=== PATIENT | male | born 1955 | race African-American/Black ===

== ENCOUNTER 2016-09-19 00:41 | Emergency (ER) | payer OTHER ==
[~2016-09-19] VITALS: Ht 182.9 cm; Wt 134.6 kg
[2016-09-19 00:46] VITALS: TEMP 37; Ht 182.9 cm; Wt 134.6 kg
--- NOTE | 2016-09-19 01:20 | EMERGENCY ROOM VISIT NOTE ---
History Report prepared by Bernice: Christian Dodd Under the Supervision of: Dr. Harriet rAnold D.O. First contact with patient: 00:51 Chief Complaint: ILLNESS Stated Complaint: FEVER,HYPERTENSION,PAIN History of Present Illness The patient is a 61 year old male who presents to the Emergency Room with complaints of constant left flank pain starting today and high blood pressure. He currently rates his discomfort as a 10/10 in severity. The patient states that he has been having kidney problems, and he has protein in his urine. The patient states that he has lost weight, however for the past couple of days he has been bloated, and he has gained weight. He states that he has leg discomfort as well. The patient states that he has chills, though he denies any urinary burning, nausea, vomiting, or fever. He states that he has a history of diabetes, and he take Humalog daily in the morning and night, and his sugar was 80 this morning. The patient states that he has been having normal bowel movements. Source of History: patient Onset: earlier today Position: other (kidney) Symptom Intensity: 10/10 Timing: constant Associated Symptoms: + chills, No nausea, No vomiting, No urinary symptoms Review of Systems See HPI for pertinent positives & negatives. A total of 10 systems reviewed and were otherwise negative. Past Medical & Surgical Medical Problems: (1) Diabetes (2) High blood pressure Family History Patient reports no known family medical history. Social History Smoking Status: Never Smoker Housing Status: other (senior living) Occupation Status: unemployed Current/Historical Medications Scheduled Amlodipine (Norvasc), 10 MG PO DAILY Emollient (Aloe Aftersun Lotion), 1 APPLN TOP BID17 Furosemide (Lasix), 80 MG PO DAILY Insulin Glargine (Lantus), 30 UNITS SC QPM Insulin Human Regular (Humulin R), SQ BID Insulin Isophan/Regular (Humulin 70/30), 10 UNITS SC QAM Lisinopril (Prinivil), 40 MG PO BID Metolazone (Zaroxolyn), 1.25 MG PO DAILY Metoprolol Tartrate (Lopressor) (Lopressor), 50 MG PO BID Ranitidine Hcl (Zantac), 300 MG PO BID Tolnaftate (Tolnaftate), 1 APPLN TOP BID Scheduled PRN Dextrose (Diabetic Use) (Glucose), 1 TAB PO DAILY PRN for LOW BLOOD SUGAR Allergies Coded Allergies: No Known Allergies (Unverified , 09/19/16) Physical Exam Vital Signs Date Time Temp Pulse Resp B/P (MAP) Pulse Ox O2 Delivery O2 Flow Rate FiO2 09/19/16 03:53 72 20 161/91 98 Room Air 09/19/16 03:10 75 20 190/105 97 Room Air 09/19/16 02:48 80 09/19/16 02:05 81 18 172/111 98 Room Air 09/19/16 02:05 98 Room Air 09/19/16 00:46 37.0 92 16 161/114 98 Room Air Physical Exam HEENT: Head - normocephalic and atraumatic Pupils are equal, round, and reactive to light. Extraocular eye muscles are intact, and sclera are anicteric. Nose - moist nasal mucosa without discharge. Mouth - moist buccal mucosa. Oropharynx is nonerythematous and there is no tonsillar exudate or edema noted. Neck: Supple; no JVD, nuchal rigidity, cervical lymphadenopathy, or auscultated bruits. Heart: Regular rate and rhythm. There is a normal S1 and S2 with no murmurs, clicks, or gallops appreciated. Lungs: Clear to auscultation bilaterally with no wheezes, rales, or rhonchi. Abdomen: Soft, completely nontender, nondistended, with good bowel sounds. There are no palpable pulsatile masses or hepatosplenomegaly. There is no guarding, rigidity, or rebound noted. Back: Left CVA tenderness. Extremities: 2+ edema in the legs. No evidence of cyanosis, clubbing. There are easily palpable peripheral pulses. Skin: warm and dry with good turgor and no rashes. Medical Decision & Procedures ER Provider Diagnostic Interpretation: X-ray results as stated below per interpretation by me: Chest: Borderline cardiomegaly. No obvious pulmonary infiltrate or consolidation. Pulmonary vascular congestion. Radiology results as stated below per my review and the radiologist's interpretation: CT ABDOMEN & PELVIS: Bilateral perinephric stranding. Correlate clinically/ with urinalysis to exclude infection. No hydronephrosis or obstructive uropathy. No abscess. No bowel obstruction. No appendicitis or other inflammatory changes of bowel. Scattered distal colonic ventricle. Pancreas and gallbladder are grossly unremarkable. No free air or free fluid. Radiologist: Judah Hernandez Laboratory Results 09/19/16 02:33 Red Blood Count 5.21, Mean Corpuscular Volume 78.5, Mean Corpuscular Hemoglobin 26.3, Mean Corpuscular Hemoglobin Concent 33.5, Mean Platelet Volume 11.5, Neutrophils (%) (Auto) 45.0, Lymphocytes (%) (Auto) 36.6, Monocytes (%) (Auto) 14.7, Eosinophils (%) (Auto) 3.2, Basophils (%) (Auto) 0.3, Neutrophils # (Auto ) 4.85, Lymphocytes # (Auto) 3.95, Monocytes # (Auto) 1.59, Eosinophils # (Auto ) 0.35, Basophils # (Auto) 0.03 09/19/16 02:33 Test 09/19/16 02:15 09/19/16 02:33 09/19/16 02:39 Urine Color YELLOW Urine Appearance CLEAR (CLEAR) Urine pH 6.5 (4.5-7.5) Urine Specific Gruver 1.016 (1.000-1.030) Urine Protein 4+ (NEG) Urine Glucose (UA) NEG (NEG) Urine Ketones NEG (NEG) Urine Occult Blood 2+ (NEG) Urine Nitrite NEG (NEG) Urine Bilirubin NEG (NEG) Urine Urobilinogen NEG (NEG) Urine Leukocyte Esterase NEG (NEG) Urine WBC (Auto) 1-5 /hpf (0-5) Urine RBC (Auto) 10-30 /hpf (0-4) Urine Hyaline Casts (Auto) 1-5 /lpf (0-5) Urine Epithelial Cells (Auto) >30 /lpf (0-5) Urine Bacteria (Auto) NEG (NEG) White Blood Count 10.79 K/uL (4.8-10.8) Red Blood Count 5.21 M/uL (4.7-6.1) Hemoglobin 13.7 g/dL (14.0-18.0) Hematocrit 40.9 % (42-52) Mean Corpuscular Volume 78.5 fL (80-100) Mean Corpuscular Hemoglobin 26.3 pg (25-34) Mean Corpuscular Hemoglobin Concent 33.5 g/dl (32-36) Platelet Count 184 K/uL (130-400) Mean Platelet Volume 11.5 fL (7.4-10.4) Neutrophils (%) (Auto) 45.0 % Lymphocytes (%) (Auto) 36.6 % Monocytes (%) (Auto) 14.7 % Eosinophils (%) (Auto) 3.2 % Basophils (%) (Auto) 0.3 % Neutrophils # (Auto) 4.85 K/uL (1.4-6.5) Lymphocytes # (Auto) 3.95 K/uL (1.2-3.4) Monocytes # (Auto) 1.59 K/uL (0.11-0.59) Eosinophils # (Auto) 0.35 K/uL (0-0.5) Basophils # (Auto) 0.03 K/uL (0-0.2) RDW Standard Deviation 38.1 fL (36.4-46.3) RDW Coefficient of Variation 13.4 % (11.5-14.5) Immature Granulocyte % (Auto) 0.2 % Immature Granulocyte # (Auto) 0.02 K/uL (0.00-0.02) Prothrombin Time 10.4 SECONDS (9.0-12.0) Prothromb Time International Ratio 1.0 (0.9-1.1) Activated Partial Thromboplast Time 26.2 SECONDS (21.0-31.0) Partial Thromboplastin Ratio 1.0 Anion Gap 8.0 mmol/L (3-11) Est Creatinine Clear Calc Drug Dose 33.8 ml/min Estimated GFR () 22.3 Estimated GFR (Non- 19.2 BUN/Creatinine Ratio 9.4 (10-20) Calcium Level 7.9 mg/dl (8.5-10.1) Total Bilirubin 0.4 mg/dl (0.2-1) Aspartate Amino Transf (AST/SGOT) 35 U/L (15-37) Alanine Aminotransferase (ALT/SGPT) 31 U/L (12-78) Alkaline Phosphatase 127 U/L (45-117) Total Protein 6.7 gm/dl (6.4-8.2) Albumin 2.3 gm/dl (3.4-5.0) Globulin 4.4 gm/dl (2.5-4.0) Albumin/Globulin Ratio 0.5 (0.9-2) Chemistry Specimen Hemolysis Bedside Lactic Acid Venous 0.40 mmol/L (0.90-1.70) Laboratory results per my review. Medications Administered Medications (Trade) Dose Ordered Sig/Errol Route Start Time Stop Time Status Last Admin Dose Admin Hydromorphone HCl (Dilaudid Inj) 3 mg NOW STAT IM 09/19/16 02:36 09/19/16 02:38 DC 09/19/16 02:50 3 MG Hydralazine HCl (Apresoline Tab) 25 mg NOW STAT PO 09/19/16 03:08 09/19/16 03:09 DC 09/19/16 03:27 25 MG Procedure Medications: Dilaudid Inj IM, Apresoline Tab PO ECG Indication: other (kidney pain and hypertension) Rate (beats per minute): 81 Rhythm: normal sinus Findings: no acute ischemic change, no ectopy, other (No peaked T waves) ED Course 0051: Past medical records reviewed. The patient was evaluated in room B6. A complete history and physical exam was performed. Multiple attempts were made at drawing laboratory studies, blood cultures, and initiating an IV. These were all unsuccessful. 0212: I reviewed the patient's records from [facility]. On the patient's creatinine was 3.0, potassium of 5, and a glucose of 126. 0235: I performed a groin stick for blood. The patient was still complaining of left flank pain. 0236: Dilaudid Inj 3mg IM 0306: I reevaluated the patient, and informed him that he is going to CT scan, and I recycled his blood pressure, and it was 191/105. 0308: Apresoline Tab 25mg PO 0416: I discussed everything with the nurse on duty at [facility]. She will convey the information with the doctor that comes in at 8am 0424: Upon reevaluation, the patient was feeling better. I discussed findings and results with him. He verbalized agreement of the treatment plan. He was discharged back to [facility]. Medical Decision The patient is a 61 year old male who presents to the ED with left flank pain. Differential diagnosis includes sepsis, acute renal failure, pyelonephritis, and ureteral colic. I attest that I have personally reviewed the patient's current medication list. Patient was found to have an elevated blood pressure and was referred to their primary doctor for recheck and further treatment. Lab Results: Coags normal,, no leukocytosis, stable H&H, lactic acid .4, BUN 31 , creatinine 3.3, glucose 71, LFTs normal, Urinalysis showed 2+ blood with 10- 30 red blood cells, 4+ proteins. The patient has had persistent hypertension and lower extremity edema over the past couple of days. He has had an increasing creatinine. He then developed some left-sided flank pain and chills. Urinalysis revealed no evidence of urinary tract infection. However, there was some blood noted in the urine. CT scan was ordered to rule out the possibility of a ureteral stone. There is no obvious evidence of kidney stone, however there was some perinephric stranding bilaterally. The patient's blood pressure responded nicely to oral hydralazine. I believe the patient will need close monitoring at the senior living with regards to his blood pressure and creatinine. There is no evidence of urinary tract infection on urinalysis. Impression Primary Impression: Left flank pain Additional Impressions: Acute renal insufficiency Uncontrolled hypertension Scribe Attestation The scribe's documentation has been prepared under my direction and personally reviewed by me in its entirety. I confirm that the note above accurately reflects all work, treatment, procedures, and medical decision making performed by me. Departure Information Dispostion Home / Self-Care Referrals Esperanza PORTER (PCP) Forms HOME CARE DOCUMENTATION FORM, IMPORTANT VISIT INFORMATION, WORK / SCHOOL INSTRUCTIONS Patient Instructions My [facility] [employer] Additional Instructions Watch the BP closely. Possible medication adjustment. His BP responded nicely to oral hydralazine. Low sodium diet. Elevate the legs. Stranding around both kidneys with hematuria and proteinuria on UA. Problem Qualifiers
[2016-09-19] MEDS ORDERED: AMLO-114 PO (01:30)
[2016-09-19] MEDS ORDERED: FRS/40 PO (01:37)
[2016-09-19] MEDS ORDERED: LISI40TA PO (01:37)
[2016-09-19] MEDS ORDERED: EMOLLOT TOP (01:41)
[2016-09-19] MEDS ORDERED: METO2.5T PO (01:42)
[2016-09-19] MEDS ORDERED: RANI300T2 PO (01:42)
[2016-09-19] MEDS ORDERED: METO50TA16 PO (01:44)
[2016-09-19] MEDS ORDERED: TOLN1CRE26 TOP (01:44)
[2016-09-19] MEDS ORDERED: DEXT4CHW60 PO (01:45)
[2016-09-19] MEDS ORDERED: INSDGI SC (01:46)
[2016-09-19] MEDS ORDERED: INSU1INJ SC (01:46)
[2016-09-19] MEDS ORDERED: INSHRIE SQ (01:58)
[2016-09-19 02:05] VITALS: O2SAT 98
[2016-09-19 02:31] LABS: URINE APPEARANCE CLEAR (CLEAR); URINE BILIRUBIN NEG (NEG); URINE COLOR YELLOW; URINE EPITHELIAL CELL AUTO >30 /lpf (0-5); URINE NITRITE NEG (NEG); URINE PH 6.5 (4.5-7.5); URINE SPECIFIC GRAVITY 1.016 (1.000-1.030); UROBILINOGEN NEG (NEG); ZZUR CULT IF INDIC CLEAN CATCH NO
[2016-09-19] MEDS ORDERED: HYDROmorphone HCL 4 MG/ML SYR IM STA (02:36)
[2016-09-19 02:37] LABS: MANUAL MICROSCOPIC REQUIRED? NO; REVIEW REQ? NO
[2016-09-19 02:51] LABS: BASO % 0.3 %; BASO ABS # 0.03 K/uL (0-0.2); COMPLETE YES; EOS % 3.2 %; HEMATOCRIT 40.9 % (42-52); IG% 0.2 %; LYMPH % 36.6 %; LYMPH ABS # 3.95 K/uL (1.2-3.4); MEAN CELL VOLUME 78.5 fL (80-100); MEAN CORPUSCULAR HEMOGLOBIN 26.3 pg (25-34); MEAN CORPUSCULAR HGB CONC 33.5 g/dl (32-36); MEAN PLATELET VOLUME 11.5 fL (7.4-10.4); MONO % 14.7 %; PLATELET COUNT 184 K/uL (130-400); RED BLOOD COUNT 5.21 M/uL (4.7-6.1); WHITE BLOOD COUNT 10.79 K/uL (4.8-10.8)
[2016-09-19 03:04] LABS: PROTHROMBIN TIME (PATIENT) 10.4 SECONDS (9.0-12.0)
[2016-09-19 03:17] LABS: ALB/GLOB RATIO 0.5 (0.9-2); BUN/CREATININE RATIO 9.4 (10-20); CALCIUM 7.9 mg/dl (8.5-10.1); CREATININE 3.3 mg/dl (0.60-1.40); POTASSIUM 3.6 mmol/L (3.5-5.1)
[2016-09-19 03:53] VITALS: BP 161/91; PULSE 72; O2SAT 98
--- NOTE | 2016-09-19 06:37 | DIAGNOSTIC IMAGING REPORT ---
ABDOMEN AND PELVIS CT WITHOUT CONTRAST CT DOSE: 2174.17 mGy.cm HISTORY: Flank pain eval for left -sided stone TECHNIQUE: Multiaxial CT images of the abdomen and pelvis were performed without the use of intravenous and oral contrast according to the standard department stone protocol. COMPARISON STUDY: None. FINDINGS: Lung bases are clear. Liver spleen and pancreas are unremarkable. Perinephric fat stranding with a suggestion of slight edematous change of the kidneys bilaterally. No evidence for an obstructing calculus. Bowel pattern overall is nonobstructive. The appendix is normal. Several scattered colonic diverticuli. IMPRESSION: Findings suspect for bilateral renal pyelonephritis Electronically signed by: Hiram York M.D. 09/19/2016 6:36 AM Dictated Date/Time: 09/19/2016 6:34 AM
--- NOTE | 2016-09-19 07:27 | DIAGNOSTIC IMAGING REPORT ---
SINGLE VIEW CHEST CLINICAL HISTORY: Sepsis. FINDINGS: An AP, portable, upright chest radiograph is obtained. No prior studies are available for comparison at the time of dictation. The examination is degraded by portable technique and apical lordotic positioning. The cardiomediastinal silhouette is unremarkable. The lungs and pleural spaces are clear. No pneumothorax is seen. The bony thorax is grossly intact. IMPRESSION: No active disease in the chest. Electronically signed by: Zach Watkins M.D. 09/19/2016 7:26 AM Dictated Date/Time: 09/19/2016 7:25 AM
[2016-10-30] MEDS ORDERED: HYDR-4716 PO (13:50)
== END 2016-09-19 04:28 | disposition home or self-care (01) ==
LOC: C.EDB 00:43
DX: R10.9 Unspecified abdominal pain (principal); N28.9 Disorder of kidney and ureter, unspecified; I10 Essential (primary) hypertension; E11.9 Type 2 diabetes mellitus without complications; Z79.4 Long term (current) use of insulin

== ENCOUNTER → 2016-09-22 | Outpatient (CLI) | payer OTHER ==
[~2016-09-22] MED LIST: AMLO-114 PO; APR10 PO; ATOR-22 PO; CARV25TA2 PO; DEXT4CHW60 PO; EMOLLOT TOP; FRS/40 PO; FURO-85 PO; HYDR-4716 PO; INSDGI SC; INSHRIE SQ; INSU1INJ SC; LISI40TA PO; METO2.5T PO; METO50TA16 PO; RANI300T2 PO; TOLN1CRE26 TOP; TORS100T13 PO; TORS20TA2 PO
[2016-09-22 08:45] LABS: BLOOD UREA NITROGEN 33 mg/dl (7-18); BUN/CREATININE RATIO 10.7 (10-20); CALCIUM 8.1 mg/dl (8.5-10.1); CARBON DIOXIDE 23 mmol/L (21-32); CHLORIDE 116 mmol/L (98-107); GLUCOSE 57 mg/dl (70-99); POTASSIUM 4.4 mmol/L (3.5-5.1); SODIUM 147 mmol/L (136-145)
== END | disposition home or self-care (01) ==
LOC: C.LABSPEC 08:08
PROVIDERS: ATTEND Physician Assistant Medical
DX: N17.9 Acute kidney failure, unspecified (principal)

== ENCOUNTER 2016-10-16 15:25 | Inpatient (IN) | payer OTHER ==
[~2016-10-16] VITALS: Ht 182.9 cm; Wt 138.5 kg
[~2016-10-16 15:25] MED LIST changes: -APR10 PO; -ATOR-22 PO; -CARV25TA2 PO; -FURO-85 PO; -HYDR-4716 PO; -TORS100T13 PO; -TORS20TA2 PO
[2016-10-16] MEDS ORDERED: FUROSEMIDE 40 MG/4 ML VIAL IV STA (16:08)
[2016-10-16] MEDS ORDERED: NITROGLYCERIN OINT 2% 1GM PACKET EXT STA (16:11)
--- NOTE | 2016-10-16 16:13 | EMERGENCY ROOM VISIT NOTE ---
History Report prepared by Bernice: Edilma Blackwood Under the Supervision of: Dr. Mervin Mejia M.D. First contact with patient: 16:01 Chief Complaint: EDEMA TO EXTREMITY Stated Complaint: HYPERTENSION/EDEMA, [facility] History of Present Illness The patient is a 61 year old male who presents to the Emergency Room with complaints of persistent weakness over the past several days. The patient reports that over the past three days he has gained 10 pounds. He states that he has a history of kidney disease and diabetes. The patient states that he has been becoming short of breath with exertion. He states that he has been hypertensive over the past several days. The patient reports right knee pain, and bilateral lower extremity swelling. He states that he has also been fatigued. The patient states that his Lasix was recently stopped due to his kidney disease, but states that he was instructed to restart it today. The patient denies any chest pain. Source of History: patient Onset: past several days Position: other (global) Quality: other (weakness) Timing: other (persistent) Associated Symptoms: + SOB (with exertion), + fatigue, No chest pain Note: Associated Symptoms: bilateral lower extremity swelling, hypertension, right knee pain, 10 pound weight gain Review of Systems See HPI for pertinent positives & negatives. A total of 10 systems reviewed and were otherwise negative. Past Medical & Surgical Medical Problems: (1) Diabetes (2) High blood pressure Family History Patient reports no known family medical history. Social History Smoking Status: Former Smoker Housing Status: other Occupation Status: unemployed Current/Historical Medications Scheduled Amlodipine (Norvasc), 10 MG PO DAILY Atorvastatin (Lipitor), 20 MG PO DAILY Insulin Glargine (Lantus), 30 UNITS SC QPM Insulin Human Regular (Humulin R), SQ BID Insulin Isophan/Regular (Humulin 70/30), 10 UNITS SC QAM Lisinopril (Prinivil), 20 MG PO DAILY Metoprolol Tartrate (Lopressor) (Lopressor), 100 MG PO BID Scheduled PRN Dextrose (Diabetic Use) (Glucose), 1 TAB PO DAILY PRN for LOW BLOOD SUGAR Ranitidine Hcl (Zantac), 150 MG PO DAILY PRN for heartburn Allergies Coded Allergies: No Known Allergies (Unverified , 10/16/16) Physical Exam Vital Signs Date Time Temp Pulse Resp B/P (MAP) Pulse Ox O2 Delivery O2 Flow Rate FiO2 10/16/16 19:00 76 24 99 10/16/16 18:51 236/112 10/16/16 18:00 73 24 207/124 98 Room Air 10/16/16 17:10 75 20 209/112 98 Room Air 10/16/16 16:16 97 Room Air 10/16/16 16:16 97 Room Air 10/16/16 15:48 36.9 83 22 220/115 99 Room Air 10/16/16 15:43 76 Physical Exam GENERAL: Patient is a healthy-appearing well-nourished male HEAD: Normocephalic atraumatic EYES: Ocular movements intact pupils equal and react to light OROPHARYNX mucous membranes are moist no exudates present no erythema or edema present NECK: Supple no nuchal rigidity CHEST: Good equal expansion LUNGS: Clear and equal to auscultation CARDIAC: Normal S1 and S2 ABDOMEN: Soft nontender no guarding BACK: No CVA tenderness EXTREMITIES: 2+ pitting edema at the thighs. No pain upon palpation normal muscle strength in all groups no clubbing cyanosis. NEURO: Patient is following commands and answering questions appropriately. Alert and oriented x3 Cranial Nerves 2-12 grossly intact Medical Decision & Procedures ER Provider Diagnostic Interpretation: Radiology results as stated below per my review and radiologist interpretation: RIGHT LOWER EXTREMITY VENOUS DOPPLER CLINICAL HISTORY: Right lower extremity swelling. COMPARISON STUDY: No previous studies for comparison. TECHNIQUE: Sonography of the deep venous system of the right lower extremity was performed. Compression and augmentation were evaluated. FINDINGS: The common femoral, superficial femoral and popliteal veins were compressible. Augmentation was normal. Flow was shown within the deep calf vessels. Note was made of right lower extremity subcutaneous edema. IMPRESSION: No evidence of deep venous thrombus within the right lower extremity. Electronically signed by: Lc Ace M.D. 10/16/2016 6:37 PM Dictated Date/Time: 10/16/2016 6:37 PM RIGHT KNEE 1 OR 2 VIEWS ROUTINE CLINICAL HISTORY: Pt c/o Rt knee pain Right pain COMPARISON: None. DISCUSSION: Mild/moderate degenerative change of all major joint compartments. No evidence for acute bony pathology. Metallic fragment within the soft tissues lateral to the knee. Per history this appears to been pre-existing There is no evidence for soft tissue swelling. IMPRESSION: Mild degenerative change all major joint compartments. No acute process. The above report was generated using voice recognition software. It may contain grammatical, syntax or spelling errors. Electronically signed by: Hiram York M.D. 10/16/2016 4:40 PM Dictated Date/Time: 10/16/2016 4:39 PM CHEST ONE VIEW PORTABLE CLINICAL HISTORY: Pt c/o SOB dyspnea COMPARISON STUDY: 09/19/2016 FINDINGS: Mild stable cardia megaly. Diaphragms smooth. Lungs are clear. IMPRESSION: Mild stable cardiomegaly. Otherwise negative study. The above report was generated using voice recognition software. It may contain grammatical, syntax or spelling errors. Electronically signed by: Hiram York M.D. 10/16/2016 4:39 PM Dictated Date/Time: 10/16/2016 4:38 PM Laboratory Results 10/16/16 17:40 Red Blood Count 4.92, Mean Corpuscular Volume 78.9, Mean Corpuscular Hemoglobin 26.0, Mean Corpuscular Hemoglobin Concent 33.0, Mean Platelet Volume 11.3, Neutrophils (%) (Auto) 43.1, Lymphocytes (%) (Auto) 41.2, Monocytes (%) (Auto) 11.5, Eosinophils (%) (Auto) 3.7, Basophils (%) (Auto) 0.3, Neutrophils # (Auto ) 4.23, Lymphocytes # (Auto) 4.04, Monocytes # (Auto) 1.13, Eosinophils # (Auto ) 0.36, Basophils # (Auto) 0.03 10/16/16 17:40 Test 10/16/16 16:35 10/16/16 17:40 10/16/16 17:47 10/16/16 17:50 Urine Color YELLOW Urine Appearance CLEAR (CLEAR) Urine pH 6.5 (4.5-7.5) Urine Specific Sasser 1.018 (1.000-1.030) Urine Protein 3+ (NEG) Urine Glucose (UA) TRACE (NEG) Urine Ketones NEG (NEG) Urine Occult Blood 2+ (NEG) Urine Nitrite NEG (NEG) Urine Bilirubin NEG (NEG) Urine Urobilinogen NEG (NEG) Urine Leukocyte Esterase NEG (NEG) Urine WBC (Auto) 1-5 /hpf (0-5) Urine RBC (Auto) 10-30 /hpf (0-4) Urine Hyaline Casts (Auto) 0 /lpf (0-5) Urine Epithelial Cells (Auto) >30 /lpf (0-5) Urine Bacteria (Auto) NEG (NEG) Urine Renal Epithelial Cells /lpf (0-5) White Blood Count 9.81 K/uL (4.8-10.8) Red Blood Count 4.92 M/uL (4.7-6.1) Hemoglobin 12.8 g/dL (14.0-18.0) Hematocrit 38.8 % (42-52) Mean Corpuscular Volume 78.9 fL (80-100) Mean Corpuscular Hemoglobin 26.0 pg (25-34) Mean Corpuscular Hemoglobin Concent 33.0 g/dl (32-36) Platelet Count 161 K/uL (130-400) Mean Platelet Volume 11.3 fL (7.4-10.4) Neutrophils (%) (Auto) 43.1 % Lymphocytes (%) (Auto) 41.2 % Monocytes (%) (Auto) 11.5 % Eosinophils (%) (Auto) 3.7 % Basophils (%) (Auto) 0.3 % Neutrophils # (Auto) 4.23 K/uL (1.4-6.5) Lymphocytes # (Auto) 4.04 K/uL (1.2-3.4) Monocytes # (Auto) 1.13 K/uL (0.11-0.59) Eosinophils # (Auto) 0.36 K/uL (0-0.5) Basophils # (Auto) 0.03 K/uL (0-0.2) RDW Standard Deviation 40.5 fL (36.4-46.3) RDW Coefficient of Variation 14.2 % (11.5-14.5) Immature Granulocyte % (Auto) 0.2 % Immature Granulocyte # (Auto) 0.02 K/uL (0.00-0.02) Prothrombin Time 10.6 SECONDS (9.0-12.0) Prothromb Time International Ratio 1.0 (0.9-1.1) Est Creatinine Clear Calc Drug Dose 31.1 ml/min Estimated GFR () 19.4 Estimated GFR (Non- 16.7 BUN/Creatinine Ratio 10.4 (10-20) Calcium Level 8.1 mg/dl (8.5-10.1) Total Bilirubin 0.3 mg/dl (0.2-1) Aspartate Amino Transf (AST/SGOT) 41 U/L (15-37) Alanine Aminotransferase (ALT/SGPT) 36 U/L (12-78) Alkaline Phosphatase 129 U/L (45-117) Total Creatine Kinase 164 U/L (39-308) Creatine Kinase MB 2.2 ng/ml (0.5-3.6) Creatine Kinase MB Ratio 1.3 (0-3.0) Troponin I 0.026 ng/ml (0-0.045) Pro-B-Type Natriuretic Peptide 3234 pg/ml (0-900) Total Protein 6.4 gm/dl (6.4-8.2) Albumin 2.2 gm/dl (3.4-5.0) Globulin 4.2 gm/dl (2.5-4.0) Albumin/Globulin Ratio 0.5 (0.9-2) Bedside D-Dimer > 450 ng/mlFEU (0-450) Bedside Hemoglobin 13.3 g/dl (14.0-18.0) Bedside Hematocrit 39 % (42-52) Bedside Sodium 143 mEq/L (135-144) Bedside Potassium 3.8 mEq/L (3.3-5.0) Bedside Chloride 110 mEq/L (101-112) Bedside Total CO2 22 mEq/l (24-31) Anion Gap 16.0 mmol/L (16-25) Bedside Blood Urea Nitrogen 35 mg/dl (7-18) Bedside Creatinine 3.9 mg/dl (0.6-1.3) Bedside Glucose (other) 89 mg/dl (70-99) Bedside Ionized Calcium (Sergey) 1.11 mmol/l (1.12-1.32) Labs reviewed by ED physician. Medications Administered Medications (Trade) Dose Ordered Sig/Errol Route Start Time Stop Time Status Last Admin Dose Admin Furosemide (Lasix Inj) 40 mg NOW STAT IV 10/16/16 16:08 10/16/16 16:11 DC 10/16/16 17:59 40 MG Nitroglycerin (Nitroglycerin 2% Oint) 1 inch NOW STAT EXT 10/16/16 16:11 10/16/16 16:12 DC 10/16/16 16:36 1 INCH Sodium Chloride 500 ml @ 999 mls/hr Q31M STAT IV 7/17/17 18:21 10/16/16 18:51 DC 10/16/16 18:24 999 MLS/HR Hydralazine HCl (HydrALAZINE INJ) 10 mg NOW STAT IV. 10/16/16 20:10 10/16/16 20:22 DC 10/16/16 20:26 10 MG Procedure Central Venous Catheter Indication: access Catheter type: arrow triple lumen Location: left femoral Verbal consent was obtained after the risks and benefits were explained, including but not limited to pneumothorax, hemothorax, vessel injury, bleeding, scarring, infection, pain, and bone/joint/nerve damage. At this time, the risks of the procedure are less than the risks of NOT performing the procedure. A time out was taken and the correct patient and site identified. The patient was placed in the supine position and the skin was prepped in the standard fashion with chlorhexidine and full sterile drapes applied. The proper landmarks were identified with ultrasound, anesthetized with 1% lidocaine without epinephrine, and the needle was inserted through the skin in the standard fashion. The needle was carefully advanced into blood vessel lumen under ultrasound guidance. The guidewire was placed uneventfully. The vessel is dilated and the catheter was placed. It was sutured into position. There was good blood return from all ports. The patient tolerated the procedure well and there were no complications. Post procedure x-ray was normal. ECG Indication: SOB/dyspnea Rate (beats per minute): 76 Rhythm: normal sinus Findings: no acute ischemic change, no ectopy ED Course 1605: Past medical records reviewed. The patient was evaluated in room C3. A complete history and physical examination was performed. 1608: Ordered Lasix Inj 40 mg IV. 1611: Ordered Nitroglycerin 1 inch EXT. 1711: I placed a central line at this time in the patient. See procedure note for further detail. 1821: Ordered Sodium Chloride 500 ml @ 999 mls/hr IV. 1845: I reevaluated the patient and he is resting comfortably. I discussed the exam findings with him and the guards and I discussed the treatment plan. They verbalized complete understanding and agreement. The patient will be evaluated for further treatment. 1915: I discussed the patients case with Genie Raza. She is going to evaluate the patient for further treatment. Medical Decision Differential diagnosis: Etiologies such as infections, reactive airway disease, pneumonia, pneumothorax , COPD, CHF, cardiac ischemia, pulmonary embolism, musculoskeletal, gastrointestinal, as well as others were entertained. Medication Reconciliation: I attest that I have personally reviewed the patient' s current medication list Blood Pressure Screening: Patient was found to have an elevated blood pressure and was referred to their primary care doctor for recheck and further treatment This is a 61-year-old male who presents emergency department complaining of shortness of breath along with right leg pain and swelling. The patient has a history of renal failure and his Lasix has been stopped due to his kidney status. His creatinine today is bumped up to 3.9. He does have a positive d- dimer so he was not sent for a CAT scan of the chest. Chest x-ray does not show any evidence of congestive heart failure. We were unable to obtain the laboratory work or an IV sites therefore a central line was placed as above for laboratory work. I am deeply concerned about this patient's kidney function therefore he was discussed with the hospitalist service who agreed to admit him. Patient and guardians were in agreement with the treatment plan. Consults Time Called: 1911 Consulting Physician: Genie Raza Returned Call: 1915 I discussed the patients case with Genie Raza. She is going to evaluate the patient for further treatment. Impression Primary Impression: Acute renal failure Scribe Attestation The scribe's documentation has been prepared under my direction and personally reviewed by me in its entirety. I confirm that the note above accurately reflects all work, treatment, procedures, and medical decision making performed by me. Departure Information Dispostion Being Evaluated By Hospitalist Referrals Esperanza PORTER (PCP) Problem Qualifiers Primary Impression: Acute renal failure Acute renal failure type: unspecified Qualified Codes: N17.9 - Acute kidney failure, unspecified
[2016-10-16] MEDS ORDERED: NITROGLYCERIN OINT 2% 1GM PACKET ONE (16:34)
--- NOTE | 2016-10-16 16:40 | DIAGNOSTIC IMAGING REPORT ---
CHEST ONE VIEW PORTABLE CLINICAL HISTORY: Pt c/o SOB dyspnea COMPARISON STUDY: 09/19/2016 FINDINGS: Mild stable cardia megaly. Diaphragms smooth. Lungs are clear. IMPRESSION: Mild stable cardiomegaly. Otherwise negative study. The above report was generated using voice recognition software. It may contain grammatical, syntax or spelling errors. Electronically signed by: Hiram York M.D. 10/16/2016 4:39 PM Dictated Date/Time: 10/16/2016 4:38 PM
--- NOTE | 2016-10-16 16:41 | DIAGNOSTIC IMAGING REPORT ---
RIGHT KNEE 1 OR 2 VIEWS ROUTINE CLINICAL HISTORY: Pt c/o Rt knee pain Right pain COMPARISON: None. DISCUSSION: Mild/moderate degenerative change of all major joint compartments. No evidence for acute bony pathology. Metallic fragment within the soft tissues lateral to the knee. Per history this appears to been pre-existing There is no evidence for soft tissue swelling. IMPRESSION: Mild degenerative change all major joint compartments. No acute process. The above report was generated using voice recognition software. It may contain grammatical, syntax or spelling errors. Electronically signed by: Hiram York M.D. 10/16/2016 4:40 PM Dictated Date/Time: 10/16/2016 4:39 PM
[2016-10-16] MEDS ORDERED: ATOR-22 PO (17:06)
[2016-10-16 17:15] LABS: URINE APPEARANCE CLEAR (CLEAR); URINE BILIRUBIN NEG (NEG); URINE COLOR YELLOW; URINE EPITHELIAL CELL AUTO >30 /lpf (0-5); URINE NITRITE NEG (NEG); URINE PH 6.5 (4.5-7.5); URINE SPECIFIC GRAVITY 1.018 (1.000-1.030); UROBILINOGEN NEG (NEG)
[2016-10-16 17:29] LABS: MANUAL MICROSCOPIC REQUIRED? NO; REVIEW REQ? YES
[2016-10-16 18:01] LABS: BASO % 0.3 %; BASO ABS # 0.03 K/uL (0-0.2); COMPLETE YES; EOS % 3.7 %; HEMATOCRIT 38.8 % (42-52); IG% 0.2 %; LYMPH % 41.2 %; LYMPH ABS # 4.04 K/uL (1.2-3.4); MEAN CELL VOLUME 78.9 fL (80-100); MEAN PLATELET VOLUME 11.3 fL (7.4-10.4); MONO % 11.5 %; NEUT % 43.1 %; PLATELET COUNT 161 K/uL (130-400); RED BLOOD COUNT 4.92 M/uL (4.7-6.1); WHITE BLOOD COUNT 9.81 K/uL (4.8-10.8)
[2016-10-16 18:09] LABS: PROTHROMBIN TIME (PATIENT) 10.6 SECONDS (9.0-12.0)
[2016-10-16 18:18] LABS: BUN/CREATININE RATIO 10.4 (10-20); CALCIUM 8.1 mg/dl (8.5-10.1); CREATININE 3.7 mg/dl (0.60-1.40); POTASSIUM 3.8 mmol/L (3.5-5.1)
[2016-10-16] MEDS ORDERED: SODIUM CHLORIDE 0.9% 500ML 500 ML IV STA (18:21)
[2016-10-16 18:24] LABS: ALB/GLOB RATIO 0.5 (0.9-2); CKMB/CK RATIO 1.3 (0-3.0)
--- NOTE | 2016-10-16 18:39 | DIAGNOSTIC IMAGING REPORT ---
RIGHT LOWER EXTREMITY VENOUS DOPPLER CLINICAL HISTORY: Right lower extremity swelling. COMPARISON STUDY: No previous studies for comparison. TECHNIQUE: Sonography of the deep venous system of the right lower extremity was performed. Compression and augmentation were evaluated. FINDINGS: The common femoral, superficial femoral and popliteal veins were compressible. Augmentation was normal. Flow was shown within the deep calf vessels. Note was made of right lower extremity subcutaneous edema. IMPRESSION: No evidence of deep venous thrombus within the right lower extremity. Electronically signed by: Lc Ace M.D. 10/16/2016 6:37 PM Dictated Date/Time: 10/16/2016 6:37 PM
[2016-10-16 18:53] LABS: ISTAT CREATININE 3.9 mg/dl (0.6-1.3); ISTAT HEMOGLOBIN 13.3 g/dl (14.0-18.0); ISTAT IONIZED CALCIUM 1.11 mmol/l (1.12-1.32)
[2016-10-16] MEDS ORDERED: HydrALAZINE HCL 20 MG/ML VIAL IV. STA ×2 (20:10→21:21)
[2016-10-16] MEDS ORDERED: DEXTROSE 50% 50 ML SYR IV PRN (20:15)
[2016-10-16] MEDS ORDERED: GLUCOSE 40% GEL 15 GM TUBE PO PRN (20:15)
[2016-10-16] MEDS ORDERED: ONDANSETRON INJ 2 MG/ML 2 ML VIAL IV PRN (20:15)
[2016-10-16] MEDS ORDERED: GLUCAGON FOR INJ 1 MG VIAL SQ PRN (20:15)
[2016-10-16] MEDS ORDERED: GLUCOSE 10 TABS/TUBE PO PRN (20:15)
[2016-10-16] MEDS ORDERED: POLYETHYLENE (MIRALAX) 17 GM PACK PO PRN (20:15)
[2016-10-16] MEDS ORDERED: PHARMACY GLYCEMIC MGMT CONSULT SCH (20:21)
[2016-10-16] MEDS ORDERED: HydrALAZINE HCL 20 MG/ML VIAL ONE (20:21)
--- NOTE | 2016-10-16 20:28 | Pharmacy Progress Note ---
Glycemic Control Intl Consult Date of Service Oct 16, 2016. Scope Glycemic Pharmacist consulted by Dr Grewal on 10/16/16 for glycemic control and to write orders per [facility] inpatient glycemic control protocol Objective Weight (Kilograms): 142.100 Accuchecks BSG (last 24hrs): Test 10/16/16 17:40 Random Glucose 87 mg/dl (70-99) Laboratory Data (last 24hrs) Test 10/16/16 17:40 10/16/16 17:50 Anion Gap 8.0 mmol/L 16.0 mmol/L BUN/Creatinine Ratio 10.4 Blood Urea Nitrogen 39 mg/dl Creatinine 3.70 mg/dl Potassium Level 3.8 mmol/L Sodium Level 144 mmol/L White Blood Count 9.81 K/uL Red Blood Count 4.92 M/uL Hemoglobin 12.8 g/dL Hematocrit 38.8 % Mean Corpuscular Volume 78.9 fL Mean Corpuscular Hemoglobin 26.0 pg Mean Corpuscular Hemoglobin Concent 33.0 g/dl Platelet Count 161 K/uL Mean Platelet Volume 11.3 fL Neutrophils (%) (Auto) 43.1 % Lymphocytes (%) (Auto) 41.2 % Monocytes (%) (Auto) 11.5 % Eosinophils (%) (Auto) 3.7 % Basophils (%) (Auto) 0.3 % Neutrophils # (Auto) 4.23 K/uL Lymphocytes # (Auto) 4.04 K/uL Monocytes # (Auto) 1.13 K/uL Eosinophils # (Auto) 0.36 K/uL Basophils # (Auto) 0.03 K/uL Recent Pertinent Medications Outpatient Anti-diabetic Regimen: * Lantus 30 units HS * Humulin 70/30 10 units SQ daily * Regular insulin - sliding scale - 2-12 units based on BSG * A1c - none available, on order with AM labs Risk Factors for Insulin Resistance: * Diet: Type 2 DM Assessment & Plan ASSESSMENT: * 61 year old obese male admitted with weakness, fatigue, right knee pain, BLLE swelling. * PMH significant for type 2 DM and HTN * BSG 89mg/dl on admission. * Outpatient regimen also includes premixed basal/prandial insulin of Humulin 70 /30 mix insulin. * Pre-mixed insulin is difficult to titrate since it is already in a fixed distribution of basal:prandial insulin. Continuing pre-mixed insulin for admission typically lead to hypoglycemia d/t changing PO status but rapid acting insulin is unable to be held. * Home regimen will be held for admission per pharmacy consult. Will utilize recommended regimen of SQ basal bolus insulin regimen with Lantus (home dose) + NovoLog (CF+CR) * ADA & AACE recommend a goal blood sugar range 140-180 mg/dl for the majority of critically ill & non-critically ill patients. However, more stringent targets may be selected in individual cases. Will utilize more stringent goal of 110-140mg/dl based on patient age & comorbidities. Additionally, tighter glycemic control is warranted to facilitate wound/infection healing. PLAN FOR INPATIENT GLYCEMIC CONTROL: * Basal insulin with LANTUS 30 units SQ HS * hold for BSG < 90mg/dl * Correctional Insulin with NOVOLOG per scale ACHS or Q6hrs while NPO * Goal Range: Low 110 mg/dL - High 140 mg/dL * Correction Factor: 30 mg/dL/unit * Nutritional / Prandial insulin per carb ratio of 1 unit per 10 grams CHO consumed * Please note that the plan above was derived based on current level of insulin resistance and hospital stress. These recommendations are appropriate for inpatient admission only. Plan of care upon discharge will need to be reassessed to avoid potential outpatient hypo/hyperglycemia. Thank you.
[2016-10-16] MEDS ORDERED: INSULIN GLARGINE SOLOSTAR 100 UNITS/ML 3 ML PEN SC SCH (21:00)
--- NOTE | 2016-10-16 21:03 | DIAGNOSTIC IMAGING REPORT ---
LEFT LOWER EXTREMITY VENOUS DOPPLER CLINICAL HISTORY: Left lower extremity swelling. COMPARISON STUDY: No previous studies for comparison. TECHNIQUE: Sonography of the deep venous system of the left lower extremity was performed. Compression and augmentation were evaluated. FINDINGS: Portions of the left common femoral and greater saphenous veins were partially obscured due to overlying bandage. The common femoral, superficial femoral and popliteal veins were compressible. Augmentation was normal. Flow was shown within the deep calf vessels. IMPRESSION: No evidence of deep venous thrombus within the left lower extremity although portions of the left common femoral and greater saphenous veins were partially obscured on this exam. Electronically signed by: Lc Ace M.D. 10/16/2016 9:01 PM Dictated Date/Time: 10/16/2016 9:00 PM
[2016-10-16 21:10] VITALS: BP 225/112; PULSE 72; TEMP 36.8; O2SAT 99; BMI 41.9
--- NOTE | 2016-10-16 21:13 | History and Physical ---
History & Physical Date & Time of Service: Oct 16, 2016 at 20:12 Chief Complaint: Hypertension/Edema, [facility] Primary Care Physician: Esperanza PORTER History of Present Illness Source: patient, hospital records 61 yoM prisoner from local [facility]way with a h/o HTN presents with symptoms of low energy, shortness of breath, weight gain 12 pounds over the past 3 days. He denies any chest pain or headaches. He reports his BP being high over the past 3 days, also. He states that he has been taking Lasix daily for at least 3 years, which [facility]. He came into the ER in August for L flank pain and was found to have a creatinine 3.3, microscopic hematuria and proteinuria, and a CT a/p which showed some bilateral perinephric fat stranding and no kidney stone. He was sent home with orders to stop Lasix, which he has been off of now for 3 weeks. His PCP [facility] the [facility] was going to start it back today at 40mg, which is 50% his normal dose, but he was sent to the ER instead. He typically takes lisinopril, amlodipine and lopressor for blood pressure and reports compliance with medications, although he doesn't actually know what he takes. He reports having a non-productive cough and states he feels like he has a cold. He denies sinus congestion, fevers, chills , nausea, vomiting, diarrhea or other changes in bowel. He has persistent chronic R knee pain and there is no swelling or erythema on exam. He also reported knee pain at his last ER visit. Xray today reveals DJD, and we discussed nono-urgent possible options for treatment including tramadol, steroid injections, PT and knee replacement. He denies any issues with urination, states that he voids completely and there is no dysuria, hematuria or urinary urgency. He does report some L flank pain. He says his swelling is worse in his hands and lower legs. He is progressively short of breath at rest now, which is a change from his baseline exercise tolerance. . Past Medical/Surgical History Medical Problems: (1) CKD (chronic kidney disease) Status: Chronic (2) Diabetes Status: Chronic (3) High blood pressure Status: Chronic (4) Hyperlipidemia Status: Chronic Family History Patient reports no known family medical history. Social History Smoking Status: Former Smoker Smokeless Tobacco Use: No Alcohol Use: none Drug Use: none Marital Status: single Housing status: other (incarcerated) Occupational Status: unemployed Immunizations History of Influenza Vaccine: Unknown History of Tetanus Vaccine?: Unknown History of Pneumococcal: Unknown History of Hepatitis B Vaccine: Unknown Multi-Drug Resistant Organisms History of MDRO: No Allergies Coded Allergies: No Known Allergies (Unverified , 10/16/16) Home Medications Scheduled Amlodipine (Norvasc), 10 MG PO DAILY Atorvastatin (Lipitor), 20 MG PO DAILY Insulin Glargine (Lantus), 30 UNITS SC QPM Insulin Human Regular (Humulin R), SQ BID Insulin Isophan/Regular (Humulin 70/30), 10 UNITS SC QAM Lisinopril (Prinivil), 20 MG PO DAILY Metoprolol Tartrate (Lopressor) (Lopressor), 100 MG PO BID Scheduled PRN Dextrose (Diabetic Use) (Glucose), 1 TAB PO DAILY PRN for LOW BLOOD SUGAR Ranitidine Hcl (Zantac), 150 MG PO DAILY PRN for heartburn Review of Systems At least ten systems were reviewed and negative except as indicated in HPI. Physical Exam Vital Signs Date Time Temp Pulse Resp B/P (MAP) Pulse Ox O2 Delivery O2 Flow Rate FiO2 10/16/16 19:00 76 24 99 10/16/16 18:51 236/112 10/16/16 18:00 73 24 207/124 98 Room Air 10/16/16 17:10 75 20 209/112 98 Room Air 10/16/16 16:16 97 Room Air 10/16/16 16:16 97 Room Air 10/16/16 15:48 36.9 83 22 220/115 99 Room Air 10/16/16 15:43 76 GEN: obese, in no acute distress, alert and appropriate HEENT: NC/AT, PERRL, normal sclerae, fundoscopic exam normal CARDIO: reg rate, S1/2 heard without m/g/r, no JVD, 2+ radial pulses LUNGS: CTA bilaterally, no crackles, rales or wheezes, good diaphragmatic excursion ABD: soft, non-tender, non-distended, no rebound or guarding, +BS EXTREMITY: RP and DP palpable 2+ bilat, swelling of hands bilaterlly and trace edema of lower extremities, extremities are warm and well-perfused NEURO: CN 2-12 grossly intact, sensation intact throughout, no gross focal deficits, speaking articulately, mentating clearly MUSC: 5/5 strength throughout, moves around the bed with ease, no focal deficits and moves all extremities equally SKIN: warm and dry, multiple tattooes Diagnostics Laboratory Results 10/16/16 17:40 Red Blood Count 4.92, Mean Corpuscular Volume 78.9, Mean Corpuscular Hemoglobin 26.0, Mean Corpuscular Hemoglobin Concent 33.0, Mean Platelet Volume 11.3, Neutrophils (%) (Auto) 43.1, Lymphocytes (%) (Auto) 41.2, Monocytes (%) (Auto) 11.5, Eosinophils (%) (Auto) 3.7, Basophils (%) (Auto) 0.3, Neutrophils # (Auto ) 4.23, Lymphocytes # (Auto) 4.04, Monocytes # (Auto) 1.13, Eosinophils # (Auto ) 0.36, Basophils # (Auto) 0.03 10/16/16 17:40 Test 10/16/16 16:35 10/16/16 17:40 10/16/16 17:47 10/16/16 17:50 Urine Color YELLOW Urine Appearance CLEAR (CLEAR) Urine pH 6.5 (4.5-7.5) Urine Specific [place] 1.018 (1.000-1.030) Urine Protein 3+ (NEG) Urine Glucose (UA) TRACE (NEG) Urine Ketones NEG (NEG) Urine Occult Blood 2+ (NEG) Urine Nitrite NEG (NEG) Urine Bilirubin NEG (NEG) Urine Urobilinogen NEG (NEG) Urine Leukocyte Esterase NEG (NEG) Urine WBC (Auto) 1-5 /hpf (0-5) Urine RBC (Auto) 10-30 /hpf (0-4) Urine Hyaline Casts (Auto) 0 /lpf (0-5) Urine Epithelial Cells (Auto) >30 /lpf (0-5) Urine Bacteria (Auto) NEG (NEG) Urine Renal Epithelial Cells /lpf (0-5) Urine Random Creatinine 75.0 mg/dl Urine Random Sodium 71 mEq/L Urine Random Urea Nitrogen 468 mg/dl White Blood Count 9.81 K/uL (4.8-10.8) Red Blood Count 4.92 M/uL (4.7-6.1) Hemoglobin 12.8 g/dL (14.0-18.0) Hematocrit 38.8 % (42-52) Mean Corpuscular Volume 78.9 fL (80-100) Mean Corpuscular Hemoglobin 26.0 pg (25-34) Mean Corpuscular Hemoglobin Concent 33.0 g/dl (32-36) Platelet Count 161 K/uL (130-400) Mean Platelet Volume 11.3 fL (7.4-10.4) Neutrophils (%) (Auto) 43.1 % Lymphocytes (%) (Auto) 41.2 % Monocytes (%) (Auto) 11.5 % Eosinophils (%) (Auto) 3.7 % Basophils (%) (Auto) 0.3 % Neutrophils # (Auto) 4.23 K/uL (1.4-6.5) Lymphocytes # (Auto) 4.04 K/uL (1.2-3.4) Monocytes # (Auto) 1.13 K/uL (0.11-0.59) Eosinophils # (Auto) 0.36 K/uL (0-0.5) Basophils # (Auto) 0.03 K/uL (0-0.2) RDW Standard Deviation 40.5 fL (36.4-46.3) RDW Coefficient of Variation 14.2 % (11.5-14.5) Immature Granulocyte % (Auto) 0.2 % Immature Granulocyte # (Auto) 0.02 K/uL (0.00-0.02) Prothrombin Time 10.6 SECONDS (9.0-12.0) Prothromb Time International Ratio 1.0 (0.9-1.1) Est Creatinine Clear Calc Drug Dose 31.1 ml/min Estimated GFR () 19.4 Estimated GFR (Non- 16.7 BUN/Creatinine Ratio 10.4 (10-20) Calcium Level 8.1 mg/dl (8.5-10.1) Total Bilirubin 0.3 mg/dl (0.2-1) Aspartate Amino Transf (AST/SGOT) 41 U/L (15-37) Alanine Aminotransferase (ALT/SGPT) 36 U/L (12-78) Alkaline Phosphatase 129 U/L (45-117) Total Creatine Kinase 164 U/L (39-308) Creatine Kinase MB 2.2 ng/ml (0.5-3.6) Creatine Kinase MB Ratio 1.3 (0-3.0) Troponin I 0.026 ng/ml (0-0.045) Pro-B-Type Natriuretic Peptide 3234 pg/ml (0-900) Total Protein 6.4 gm/dl (6.4-8.2) Albumin 2.2 gm/dl (3.4-5.0) Globulin 4.2 gm/dl (2.5-4.0) Albumin/Globulin Ratio 0.5 (0.9-2) Bedside D-Dimer > 450 ng/mlFEU (0-450) Bedside Hemoglobin 13.3 g/dl (14.0-18.0) Bedside Hematocrit 39 % (42-52) Bedside Sodium 143 mEq/L (135-144) Bedside Potassium 3.8 mEq/L (3.3-5.0) Bedside Chloride 110 mEq/L (101-112) Bedside Total CO2 22 mEq/l (24-31) Anion Gap 16.0 mmol/L (16-25) Bedside Blood Urea Nitrogen 35 mg/dl (7-18) Bedside Creatinine 3.9 mg/dl (0.6-1.3) Bedside Glucose (other) 89 mg/dl (70-99) Bedside Ionized Calcium (Sergey) 1.11 mmol/l (1.12-1.32) Test 10/16/16 20:10 10/16/16 21:25 Urine Random Microalbumin 1700.0 mg/L Bedside Glucose 164 mg/dl (70-99) Results Past 24 Hours Test 10/16/16 16:35 10/16/16 17:40 10/16/16 17:47 10/16/16 17:50 Range/Units Urine Color YELLOW Urine Appearance CLEAR CLEAR Urine pH 6.5 4.5-7.5 Urine Specific [place] 1.018 1.000-1.030 Urine Protein 3+ NEG Urine Glucose (UA) TRACE NEG Urine Ketones NEG NEG Urine Occult Blood 2+ NEG Urine Nitrite NEG NEG Urine Bilirubin NEG NEG Urine Urobilinogen NEG NEG Urine Leukocyte Esterase NEG NEG Urine WBC (Auto) 1-5 0-5 /hpf Urine RBC (Auto) 10-30 0-4 /hpf Urine Hyaline Casts (Auto) 0 0-5 /lpf Urine Epithelial Cells (Auto) >30 0-5 /lpf Urine Bacteria (Auto) NEG NEG Urine Renal Epithelial Cells 0-5 /lpf White Blood Count 9.81 4.8-10.8 K/uL Red Blood Count 4.92 4.7-6.1 M/uL Hemoglobin 12.8 14.0-18.0 g/dL Hematocrit 38.8 42-52 % Mean Corpuscular Volume 78.9 80-100 fL Mean Corpuscular Hemoglobin 26.0 25-34 pg Mean Corpuscular Hemoglobin Concent 33.0 32-36 g/dl Platelet Count 161 130-400 K/uL Mean Platelet Volume 11.3 7.4-10.4 fL Neutrophils (%) (Auto) 43.1 % Lymphocytes (%) (Auto) 41.2 % Monocytes (%) (Auto) 11.5 % Eosinophils (%) (Auto) 3.7 % Basophils (%) (Auto) 0.3 % Neutrophils # (Auto) 4.23 1.4-6.5 K/uL Lymphocytes # (Auto) 4.04 1.2-3.4 K/uL Monocytes # (Auto) 1.13 0.11-0.59 K/uL Eosinophils # (Auto) 0.36 0-0.5 K/uL Basophils # (Auto) 0.03 0-0.2 K/uL RDW Standard Deviation 40.5 36.4-46.3 fL RDW Coefficient of Variation 14.2 11.5-14.5 % Immature Granulocyte % (Auto) 0.2 % Immature Granulocyte # (Auto) 0.02 0.00-0.02 K/uL Prothrombin Time 10.6 9.0-12.0 SECONDS Prothromb Time International Ratio 1.0 0.9-1.1 Sodium Level 144 136-145 mmol/L Potassium Level 3.8 3.5-5.1 mmol/L Chloride Level 114 98-107 mmol/L Carbon Dioxide Level 22 21-32 mmol/L Anion Gap 8.0 16.0 16-25 mmol/L Blood Urea Nitrogen 39 7-18 mg/dl Creatinine 3.70 0.60-1.40 mg/dl Est Creatinine Clear Calc Drug Dose 31.1 ml/min Estimated GFR () 19.4 Estimated GFR (Non- 16.7 BUN/Creatinine Ratio 10.4 10-20 Random Glucose 87 70-99 mg/dl Calcium Level 8.1 8.5-10.1 mg/dl Total Bilirubin 0.3 0.2-1 mg/dl Aspartate Amino Transf (AST/SGOT) 41 15-37 U/L Alanine Aminotransferase (ALT/SGPT) 36 12-78 U/L Alkaline Phosphatase 129 45-117 U/L Total Creatine Kinase 164 39-308 U/L Creatine Kinase MB 2.2 0.5-3.6 ng/ml Creatine Kinase MB Ratio 1.3 0-3.0 Troponin I 0.026 0-0.045 ng/ml Pro-B-Type Natriuretic Peptide 3234 0-900 pg/ml Total Protein 6.4 6.4-8.2 gm/dl Albumin 2.2 3.4-5.0 gm/dl Globulin 4.2 2.5-4.0 gm/dl Albumin/Globulin Ratio 0.5 0.9-2 Bedside D-Dimer > 450 0-450 ng/mlFEU Bedside Hemoglobin 13.3 14.0-18.0 g/dl Bedside Hematocrit 39 42-52 % Bedside Sodium 143 135-144 mEq/L Bedside Potassium 3.8 3.3-5.0 mEq/L Bedside Chloride 110 101-112 mEq/L Bedside Total CO2 22 24-31 mEq/l Bedside Blood Urea Nitrogen 35 7-18 mg/dl Bedside Creatinine 3.9 0.6-1.3 mg/dl Bedside Glucose (other) 89 70-99 mg/dl Bedside Ionized Calcium (Sergey) 1.11 1.12-1.32 mmol/l Test 10/16/16 19:32 Range/Units Diagnostic Radiology CHEST ONE VIEW PORTABLE CLINICAL HISTORY: Pt c/o SOB dyspnea COMPARISON STUDY: 09/19/2016 FINDINGS: Mild stable cardia megaly. Diaphragms smooth. Lungs are clear. IMPRESSION: Mild stable cardiomegaly. Otherwise negative study. RIGHT KNEE 1 OR 2 VIEWS ROUTINE CLINICAL HISTORY: Pt c/o Rt knee pain Right pain COMPARISON: None. DISCUSSION: Mild/moderate degenerative change of all major joint compartments. No evidence for acute bony pathology. Metallic fragment within the soft tissues lateral to the knee. Per history this appears to been pre-existing There is no evidence for soft tissue swelling. IMPRESSION: Mild degenerative change all major joint compartments. No acute process. -- RIGHT LOWER EXTREMITY VENOUS DOPPLER CLINICAL HISTORY: Right lower extremity swelling. COMPARISON STUDY: No previous studies for comparison. TECHNIQUE: Sonography of the deep venous system of the right lower extremity was performed. Compression and augmentation were evaluated. FINDINGS: The common femoral, superficial femoral and popliteal veins were compressible. Augmentation was normal. Flow was shown within the deep calf vessels. Note was made of right lower extremity subcutaneous edema. IMPRESSION: No evidence of deep venous thrombus within the right lower extremity. EKG SR 76, no ST changes or Q waves, no evidence of ischemia Impression Assessment and Plan 61 yo M prisoner presents with hypertensive emergency 1. Hypertensive emergency-nitro paste given in ER not effective. Hydralazine 10mg IV started and will redose until MAP 115 (25% less than highest BP in ER) within 2 hours. If not improved in 2 hours, will put him on nicardipine and send to the ICU for monitoring overnight. Acute renal failure is present with evidence of protein and blood in urine and no other signs/symptoms/evidence of end-organ damage at this time including no headaches, encephalopathy, chest pain. Workup reveals no ACS and there is no evidence of stroke on my exam. Pt has been uncontrolled for a long time, and has questionable [facility]. Appreciate recs on antihypertensive regimen per Nephro. For now , cont amlodipine and Lopressor 2. Acute renal failure-multiple etiologies in this obese diabetic male with long-standing HTN and DMII. Uncertain what true baseline renal function looks like as records are not available. Microscopic hematuria present on prior and current visits (pre-[place] insertion). No dyspmorphic RBCs seen on autodifferential, but ordered urine cytology for path review. Proteinuria has also been present. DDx very broad-appreciate Nephro assistance with workup/ evaluation 3. DMII 4. Obesity 5. OA-R knee. Tramadol ordered PRN. NSAIDs contraindicated. Scheduled Tylenol is another option. Pain in the knee may be adding to his elevation in BP. DVT proph-heparin Full Code Dispo-to telemetry-will move to ICU if BP not down quickly Addendum: IV hydralazine 10mg given then 20mg IV with achievement of goal BP reduction 236/112 (153)-->175/94 (121) within two hours. Cont to monitor closely overnight and use hydralazine prn. If refractory to IV pushes, send to ICU on Nicardipine. Jennifer Grewal DO [facility] Level of Care Telemetry Resuscitation Status FULL RESUSCITATION VTE Prophylaxis VTE Risk Assessment Done? Y/N: Yes Risk Level: Moderate Given or contraindicated: Unfractionated heparin SQ
[2016-10-16] MEDS: RANITIDINE HCL 150 MG TAB PO PRN (21:51)
[2016-10-16] MEDS: METOPROLOL TARTRATE 50 MG TAB PO SCH (21:51)
[2016-10-16 22:40] VITALS: BP 172/94; PULSE 78; O2SAT 100
[2016-10-16 22:52] VITALS: BP 175/94; PULSE 75; TEMP 36.9; O2SAT 99
[2016-10-16] MEDS: HEPARIN SOD 5000 UNIT/0.5 ML CARP SQ SCH (22:56)
[2016-10-16] MEDS: INSULIN ASPART 100 UNITS/ML 3 ML PEN SC SCH (22:56)
[2016-10-17] VITALS (12 sets, daily range): BP systolic 157–189; BP diastolic 80–96; PULSE 63–79; TEMP 36.6–36.9; O2SAT 95–99; Ht 182.9 cm; Wt 138.5 kg
[2016-10-17] MEDS ORDERED: TRAMADOL/ACETAMINOPHEN 37.5/325MG TAB PO PRN (03:15)
[2016-10-17] MEDS ORDERED: HydrALAZINE HCL 20 MG/ML VIAL IV. STA (03:42)
[2016-10-17 04:24] LABS: HEMATOCRIT 37.6 % (42-52); MEAN CELL VOLUME 78.5 fL (80-100); MEAN CORPUSCULAR HEMOGLOBIN 25.5 pg (25-34); MEAN CORPUSCULAR HGB CONC 32.4 g/dl (32-36); MEAN PLATELET VOLUME 10.8 fL (7.4-10.4); PLATELET COUNT 151 K/uL (130-400); RED BLOOD COUNT 4.79 M/uL (4.7-6.1); WHITE BLOOD COUNT 8.31 K/uL (4.8-10.8)
[2016-10-17] MEDS ORDERED: HydrALAZINE HCL 20 MG/ML VIAL ONE (04:27)
[2016-10-17 04:48] LABS: BUN/CREATININE RATIO 10.6 (10-20); CALCIUM 8.1 mg/dl (8.5-10.1); CREATININE 3.6 mg/dl (0.60-1.40); POTASSIUM 3.8 mmol/L (3.5-5.1)
[2016-10-17] MEDS: HEPARIN SOD 5000 UNIT/0.5 ML CARP SQ SCH ×3 (06:05→21:02)
[2016-10-17] MEDS ORDERED: NURSING DECISION MEDICATION ORDER SCH (06:45)
[2016-10-17 06:50] LABS: ESTIMATED AVERAGE GLUCOSE 143 mg/dl; HA1C FLAG Normal (Normal)
[2016-10-17] MEDS ORDERED: SODIUM CHLORIDE 0.65% NA SOLN 45 ML (OCEAN) PRN (07:00)
[2016-10-17] MEDS: INSULIN ASPART 100 UNITS/ML 3 ML PEN SC SCH ×3 (07:46→21:02)
[2016-10-17] MEDS: METOPROLOL TARTRATE 50 MG TAB PO SCH ×2 (07:49→20:54)
[2016-10-17] MEDS: ATORVASTATIN 20 MG TAB PO SCH (07:50)
[2016-10-17] MEDS: AMLODIPINE BESYLATE 5 MG TAB PO SCH (07:50)
[2016-10-17] MEDS: ACETAMINOPHEN 325 MG TAB PO PRN (07:50)
--- NOTE | 2016-10-17 09:02 | Pharmacy Progress Note ---
Glycemic Control Progress Note Date of Service Oct 17, 2016. Scope Glycemic Pharmacist consulted for glycemic control to write orders per [facility] inpatient glycemic control protocol. Objective Accuchecks BSG (last 24hrs): Test 10/16/16 17:40 10/16/16 21:25 10/17/16 04:10 10/17/16 06:27 Random Glucose 87 mg/dl (70-99) 64 mg/dl (70-99) Bedside Glucose 164 mg/dl (70-99) 65 mg/dl (70-99) Test 10/17/16 07:44 Bedside Glucose 112 mg/dl (70-99) HbA1c: Test 10/17/16 04:10 Hemoglobin A1c 6.6 % (4.5-5.6) H Recent Pertinent Medications The patient is currently receiving: * Basal insulin: * Lantus 30 units every 24 hours (given at night) * Bolus Insulin: * NovoLog SQ AC/HS - Goal Range: Low 110 mg/dL - High 140 mg/dL - Correction Factor: 30 mg/dL/unit - Carb ratio of 1 unit per 10 grams CHO consumed Outpatient Anti-Diabetic Meds Lantus 30 units SQ q PM Regular insulin Sliding Scale Humulin 70/30 mix - 10 units SQ q AM Assessment & Plan ASSESSMENT: * See progress note from 10/16/16 for more background info, in short: * Pt receiving SQ basal bolus insulin regimen for hyperglycemia secondary to baseline DM (outpatient regimen on hold) * Patient is currently receiving an average of 38 units of insulin per day * 30 units of basal insulin * 8 units of prandial/correctional insulin= * BSGs ranging 87-164mg/dl over the past 24hrs * Changes needed to insulin regimen: * AM Fasting BSG = 65 mg/dl. - This is in slightly below goal range for patient based on inpatient targets and co-morbidities. Therefore Basal insulin needs decreased * Post-prandial BSGs are in range (however did not receive meal coverage with breakfasts and had a normal lunch BSG) - May need to loosen CF/CR to avoid hypoglycemia if pre-dinner BSG is below 100mg/dL * Total daily dose = 38 units. - May need to evenly re-distribute regimen 50%:50% basal:prandial to prevent hypo/hyperglycemia. * Goal range was 110-140mg/dL - Increase to 140-180mg/dL per ADA recommendations and to prevent hypoglycemia PLAN FOR INPATIENT GLYCEMIC CONTROL: * Basal insulin: * Decrease Lantus and dose per BSG - If BSG is below 100mg/dL - hold Lantus - If BSG is 100-140mg/dL - give Lantus 10 units - If BSG is above 140mg/dL - give Lantus 20 units * Bolus Insulin: * NovoLog SQ AC/HS - Goal Range: Low 140 mg/dL - High 180 mg/dL - Correction Factor: 30 mg/dL/unit - Carb ratio of 1 unit per 10 grams CHO consumed * if dinner BSG is below 100mg/dL change carb ratio to 1:15mg/dL/unit RECOMMENDATIONS FOR DISCHARGE: * A1c is WNL - may continue home regimen barring any significant hypo- or hyper - glycemic events * Please note that the plan above was derived based on current level of insulin resistance and hospital stress. These recommendations are appropriate for inpatient admission only. Plan of care upon discharge will need to be reassessed to avoid potential outpatient hypo/hyperglycemia. Thank you.
[2016-10-17 10:14] LABS: URINE PROTIEN/CREAT RATIO 6.7 (0-0.2); URINE TOTAL PROTEIN 807.9 mg/dl (0-11.9)
--- NOTE | 2016-10-17 11:25 | Progress Note ---
Medicine Progress Note Date & Time of Visit: Oct 17, 2016 at 11:01. Subjective Pt was seen and examined Lying in bed with no distress with one hand handcuff to the bed he has 2 guards watching over him Pt said that his LE swelling seems to improve Denies any chest pain, palpitation, dizziness, headache and SOB Objective Last 8 Hrs Date Time Temp Pulse Resp B/P (MAP) Pulse Ox O2 Delivery O2 Flow Rate FiO2 10/17/16 08:00 Room Air 10/17/16 07:53 36.9 71 18 176/82 (113) 95 Room Air 10/17/16 04:30 99 Room Air 10/17/16 04:20 77 167/87 (113) 10/17/16 03:37 36.8 68 19 181/93 (122) 96 Room Air Physical Exam: General- No acute distress Head- atraumatic Eyes- PERRL, EOMI ENT- oropharynx clear Neck- supple, no JVD Lungs- clear to auscultation Heart- regular rhythm; no murmur Abdomen- normal bowel sounds, soft Extremities- no calf tenderness, + LE edema B/L Neuro- alert, oriented x 3; PERRL, EOMI Skin- warm & dry Laboratory Results: Last 24 Hours Test 10/16/16 16:35 10/16/16 17:40 10/16/16 17:47 10/16/16 17:50 Urine Color YELLOW Urine Appearance CLEAR Urine pH 6.5 Urine Specific [place] 1.018 Urine Protein 3+ Urine Glucose (UA) TRACE Urine Ketones NEG Urine Occult Blood 2+ Urine Nitrite NEG Urine Bilirubin NEG Urine Urobilinogen NEG Urine Leukocyte Esterase NEG Urine WBC (Auto) 1-5 /hpf Urine RBC (Auto) 10-30 /hpf Urine Hyaline Casts (Auto) 0 /lpf Urine Epithelial Cells (Auto) >30 /lpf Urine Bacteria (Auto) NEG Urine Renal Epithelial Cells /lpf Urine Random Creatinine 75.0 mg/dl Urine Random Sodium 71 mEq/L Urine Random Urea Nitrogen 468 mg/dl White Blood Count 9.81 K/uL Red Blood Count 4.92 M/uL Hemoglobin 12.8 g/dL Hematocrit 38.8 % Mean Corpuscular Volume 78.9 fL Mean Corpuscular Hemoglobin 26.0 pg Mean Corpuscular Hemoglobin Concent 33.0 g/dl Platelet Count 161 K/uL Mean Platelet Volume 11.3 fL Neutrophils (%) (Auto) 43.1 % Lymphocytes (%) (Auto) 41.2 % Monocytes (%) (Auto) 11.5 % Eosinophils (%) (Auto) 3.7 % Basophils (%) (Auto) 0.3 % Neutrophils # (Auto) 4.23 K/uL Lymphocytes # (Auto) 4.04 K/uL Monocytes # (Auto) 1.13 K/uL Eosinophils # (Auto) 0.36 K/uL Basophils # (Auto) 0.03 K/uL RDW Standard Deviation 40.5 fL RDW Coefficient of Variation 14.2 % Immature Granulocyte % (Auto) 0.2 % Immature Granulocyte # (Auto) 0.02 K/uL Prothrombin Time 10.6 SECONDS Prothromb Time International Ratio 1.0 Sodium Level 144 mmol/L Potassium Level 3.8 mmol/L Chloride Level 114 mmol/L Carbon Dioxide Level 22 mmol/L Anion Gap 8.0 mmol/L 16.0 mmol/L Blood Urea Nitrogen 39 mg/dl Creatinine 3.70 mg/dl Est Creatinine Clear Calc Drug Dose 31.1 ml/min Estimated GFR () 19.4 Estimated GFR (Non- 16.7 BUN/Creatinine Ratio 10.4 Random Glucose 87 mg/dl Calcium Level 8.1 mg/dl Total Bilirubin 0.3 mg/dl Aspartate Amino Transf (AST/SGOT) 41 U/L Alanine Aminotransferase (ALT/SGPT) 36 U/L Alkaline Phosphatase 129 U/L Total Creatine Kinase 164 U/L Creatine Kinase MB 2.2 ng/ml Creatine Kinase MB Ratio 1.3 Troponin I 0.026 ng/ml Pro-B-Type Natriuretic Peptide 3234 pg/ml Total Protein 6.4 gm/dl Albumin 2.2 gm/dl Globulin 4.2 gm/dl Albumin/Globulin Ratio 0.5 Bedside D-Dimer > 450 ng/mlFEU Bedside Hemoglobin 13.3 g/dl Bedside Hematocrit 39 % Bedside Sodium 143 mEq/L Bedside Potassium 3.8 mEq/L Bedside Chloride 110 mEq/L Bedside Total CO2 22 mEq/l Bedside Blood Urea Nitrogen 35 mg/dl Bedside Creatinine 3.9 mg/dl Bedside Glucose (other) 89 mg/dl Bedside Ionized Calcium (Sergey) 1.11 mmol/l Test 10/16/16 20:10 10/16/16 21:25 10/17/16 04:10 10/17/16 06:27 Urine Random Microalbumin 1700.0 mg/L Bedside Glucose 164 mg/dl 65 mg/dl White Blood Count 8.31 K/uL Red Blood Count 4.79 M/uL Hemoglobin 12.2 g/dL Hematocrit 37.6 % Mean Corpuscular Volume 78.5 fL Mean Corpuscular Hemoglobin 25.5 pg Mean Corpuscular Hemoglobin Concent 32.4 g/dl RDW Standard Deviation 39.9 fL RDW Coefficient of Variation 14.1 % Platelet Count 151 K/uL Mean Platelet Volume 10.8 fL Nucleated RBC Absolute Count (auto) 0.00 K/uL Nucleated Red Blood Cells % 0.0 % Peripheral Blood Smear Path Consult Sodium Level 145 mmol/L Potassium Level 3.8 mmol/L Chloride Level 116 mmol/L Carbon Dioxide Level 23 mmol/L Anion Gap 6.0 mmol/L Blood Urea Nitrogen 38 mg/dl Creatinine 3.60 mg/dl Est Creatinine Clear Calc Drug Dose 31.7 ml/min Estimated GFR () 20.1 Estimated GFR (Non- 17.3 BUN/Creatinine Ratio 10.6 Random Glucose 64 mg/dl Estimated Average Glucose 143 mg/dl Hemoglobin A1c 6.6 % Calcium Level 8.1 mg/dl Test 10/17/16 07:44 10/17/16 08:14 10/17/16 09:15 Bedside Glucose 112 mg/dl Urine Random Creatinine 120.0 mg/dl Urine Random Total Protein 807.9 mg/dl Urine Protein/Creatinine Ratio 6.7 Assessment & Plan Hypertensive emergency Nitro paste given in ER with no drop on BP Pt said that he is only taking 2 med for his BP now. Lasix was on hold for about 3 weeks due to worsening kidney function Lisinopril on Hold BP has been improved Will add hydralazine prn for SBP above 170 Continue monitor BP closely Acute Renal Failure on CKD Mostly related to uncontrolled HTN and DM Creatine on admission 3.8 Creatine today 3.6 Elevated proteinuria has been off of lasix for about 3 weeks Lisinopril on hold Avoid nephrotoxic agent Renal u/s pending Nephrology consulted DMII Hba1c 6.6 controlled Continue current management Stable Obesity Diet and exercise Right Knee tenderness Due to osteoarthritis Tramadol ordered PRN. DVT px on heparin subq CODE STATUS FULL CODE Consultants: Nephrology Current Inpatient Medications: Current Inpatient Medications Medications (Trade) Dose Ordered Sig/Errol Route Start Time Stop Time Status Last Admin Dose Admin Heparin Sodium (Porcine) (Heparin Sq 5000 Unit/0.5ml) 5,000 unit Q8 SQ 10/16/16 22:00 11/15/16 21:59 10/17/16 06:05 5,000 UNIT Acetaminophen (Tylenol Tab) 650 mg Q4H PRN PO 10/16/16 20:15 11/15/16 20:14 10/17/16 07:50 650 MG Ondansetron HCl (Zofran Inj) 4 mg Q6H PRN IV 10/16/16 20:15 11/15/16 20:14 Polyethylene (Miralax Powder Packet) 17 gm DAILY PRN PO 10/16/16 20:15 11/15/16 20:14 Insulin Aspart (novoLOG ASPART) SLIDING SCALE If C... ACHS SC 10/16/16 21:00 11/15/16 20:59 10/16/16 22:56 8 UNITS Glucose (Glucose 40% Gel) 15-30 GRAMS 15 GRAMS... UD PRN PO 10/16/16 20:15 11/15/16 20:14 Glucose (Glucose Chew Tab) 4-8 Tablets 4 Tabl... UD PRN PO 10/16/16 20:15 11/15/16 20:14 Dextrose (Dextrose 50% 50ML Syringe) 25-50ML OF 50% DW IV FOR... UD PRN IV 10/16/16 20:15 11/15/16 20:14 Glucagon (Glucagon Inj) 1 mg UD PRN SQ 10/16/16 20:15 11/15/16 20:14 Miscellaneous Information (Consult Glycemic Management Pharmacy) 1 ea UD N/A 10/16/16 20:21 11/15/16 20:20 Amlodipine Besylate (Norvasc Tab) 10 mg DAILY PO 10/17/16 09:00 11/16/16 08:59 10/17/16 07:50 10 MG Atorvastatin Calcium (Lipitor Tab) 20 mg DAILY PO 10/17/16 09:00 11/16/16 08:59 10/17/16 07:50 20 MG Metoprolol Tartrate (Lopressor Tab) 100 mg BID PO 10/16/16 21:00 11/15/16 20:59 10/17/16 07:49 100 MG Ranitidine HCl (zANTac TAB) 150 mg DAILY PRN PO 10/16/16 20:15 11/15/16 20:14 10/16/16 21:51 150 MG Heparin Sodium (Porcine) (Heparin 10 Unit/ ml 5 ml Flush) 5 ml PRN PRN FLUSH 10/17/16 02:45 11/16/16 02:44 Tramadol/ Acetaminophen (Ultracet Tab) 2 tab Q4H PRN PO 10/17/16 03:15 11/16/16 03:14 Sodium Chloride ([place] Nasal [place]) 1 sprays PRN PRN NA 10/17/16 07:00 11/16/16 06:59 10/17/16 09:19 1 SPRAYS Insulin Glargine (Lantus Solostar Pen) SEE PROTOCOL TEXT HS SC 10/17/16 21:00 11/16/16 20:59 Hydralazine HCl (HydrALAZINE INJ) 10 mg Q4 PRN IV. 10/17/16 09:00 11/16/16 08:59
--- NOTE | 2016-10-17 11:45 | DIAGNOSTIC IMAGING REPORT ---
(RENAL)RETROPERITONEA COMP HISTORY: Renal insufficiency arlene COMPARISON: None. FINDINGS: Right kidney: Maximum dimension 12.1 cm. No evidence for hydronephrosis. Mild increase in cortical echogenicity. Left kidney: Maximum dimension 12.2 cm. No evidence for hydronephrosis. Mild increase in renal cortical echogenicity Bladder: No bladder wall thickening. The bilateral ureteral jets were identified. IMPRESSION: 1. No evidence for hydronephrosis. 2. Moderate increase in cortical echogenicity which may indicate a component of nonobstructive renal insufficiency. The above report was generated using voice recognition software. It may contain grammatical, syntax or spelling errors. Electronically signed by: Hiram York M.D. 10/17/2016 11:43 AM Dictated Date/Time: 10/17/2016 11:42 AM
[2016-10-17] MEDS: HydrALAZINE HCL 20 MG/ML VIAL IV. PRN (12:17)
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
[2016-10-17] MEDS ORDERED: AMLODIPINE BESYLATE 5 MG TAB PO SCH (16:00)
[2016-10-17] MEDS: RANITIDINE HCL 150 MG TAB PO PRN (16:27)
--- NOTE | 2016-10-17 17:31 | ECHOCARDIOGRAM REPORT ---
*NOTICE TO RECEIVING LIBERTARIAN AGENCY This information is strictly Confidential and protected under [place] law. [place] law prohibits you from making any further disclosure of this information unless further disclosure is expressly permitted by the written consent of the person to whom it pertains or is authorized by law. A general authorization for the release of medical or other information is not sufficient for this purpose. Hospital accepts no responsibility if the information is made available to any other person, INCLUDING THE PATIENT. Interpretation Summary * Name: TRAY AMARO [id number] Study Date: 10/17/2016 10:15 AM BP: 176/82 mmHg * Patient Location: [facility] HR: 71 * : 1955 (M/d/yyyy) Gender: Male Height: 72 in * Age: 61 yrs Ethnicity: AA Weight: 310 lb * Referring Physician: PATSY * Performed By: Edilma Bridges RDCS * * Reason For Study: HTN * BSA: 2.6 m2 * The study was technically difficult. * There is no comparison study available. * -- Conclusions -- * Ejection Fraction = 60-65%. * There is mild concentric left ventricular hypertrophy. * The left atrium is borderline dilated. * There is mild mitral regurgitation. Procedure Details * A complete two-dimensional transthoracic echocardiogram was performed (2D, M-mode, Doppler and color flow Doppler). Left Ventricle * The left ventricle is normal in size. * There is no thrombus. * There is mild concentric left ventricular hypertrophy. * Ejection Fraction = 60-65%. * Left ventricular systolic function is normal. * The left ventricular wall motion is normal. Right Ventricle * The right ventricle is normal size. * The right ventricular systolic function is normal as assessed by tricuspid annular plane systolic excursion (TAPSE) (normal >1.5 cm). Atria * The left atrium is borderline dilated. * Right atrial size is normal. * There is no evidence of atrial septal defect, but resolution does not allow assessment for a patent foramen ovale. Mitral Valve * The mitral valve is normal. * There is no mitral valve stenosis. * There is mild mitral regurgitation. Tricuspid Valve * The tricuspid valve is not well visualized. * There is no tricuspid stenosis. * Significant tricuspid regurgitation is absent. Aortic Valve * The aortic valve is not well visualized. * Aortic stenosis is absent. * There is no significant aortic regurgitation. Pulmonic Valve * The pulmonary valve is not well seen, but the Doppler examination is normal without significant regurgitation or stenosis. Great Vessels * The aortic root and proximal ascending aorta are normal sized. Pericardium/Pleural * There is no pericardial effusion. Great Vessels * Normal inferior vena cava diameter and respiratory variation suggests normal central venous pressure. Left Ventricular Diastolic Function * Pulse wave TDI of the anterior and posterior mitral annulas demonstrates abnormal LV relaxation MMode 2D Measurements and Calculations IVSd 1.3 cm IVSs 2.3 cm LVIDd 4.4 cm LVIDs 2.4 cm LVPWd 1.2 cm LVPWs 2.3 cm IVS/LVPW 1.0 FS 46.7 % EDV(Teich) 88.6 ml ESV(Teich) 19.2 ml EF(Teich) 78.3 % EDV(cubed) 86.3 ml ESV(cubed) 13.1 ml EF(cubed) 84.9 % % IVS thick 79.9 % % LVPW thick 86.0 % LV mass(C)d 204.2 grams LV mass(C)dI 79.5 grams/m\S\2 LV mass(C)s 266.1 grams LV mass(C)sI 103.7 grams/m\S\2 SV(Teich) 69.4 ml SI(Teich) 27.0 ml/m\S\2 SV(cubed) 73.2 ml SI(cubed) 28.5 ml/m\S\2 Ao root diam 3.3 cm Ao root area 8.5 cm\S\2 LA dimension 4.0 cm LA/Ao 1.2 LVAd ap4 37.1 cm\S\2 LVLd ap4 8.8 cm EDV(MOD-sp4) 127.8 ml EDV(sp4-el) 131.9 ml LVAs ap4 20.6 cm\S\2 LVLs ap4 7.5 cm ESV(MOD-sp4) 54.1 ml ESV(sp4-el) 48.3 ml EF(MOD-sp4) 57.7 % EF(sp4-el) 63.4 % LVAd ap2 42.1 cm\S\2 LVLd ap2 9.6 cm EDV(MOD-sp2) 153.7 ml EDV(sp2-el) 157.0 ml LVAs ap2 20.2 cm\S\2 LVLs ap2 7.3 cm ESV(MOD-sp2) 47.9 ml ESV(sp2-el) 47.8 ml EF(MOD-sp2) 68.8 % EF(sp2-el) 69.5 % LVLd %diff 7.8 % EDV(MOD-bp) 146.0 ml LVLs %diff -2.95 % ESV(MOD-bp) 49.8 ml EF(MOD-bp) 65.9 % SV(MOD-sp4) 73.7 ml SI(MOD-sp4) 28.7 ml/m\S\2 SV(MOD-sp2) 105.8 ml SI(MOD-sp2) 41.2 ml/m\S\2 SV(MOD-bp) 96.2 ml SI(MOD-bp) 37.5 ml/m\S\2 SV(sp4-el) 83.6 ml SI(sp4-el) 32.6 ml/m\S\2 SV(sp2-el) 109.1 ml SI(sp2-el) 42.5 ml/m\S\2 Doppler Measurements and Calculations MV E max carlos 113.5 cm/sec MV A max carlos 108.1 cm/sec MV E/A 1.1 MV dec time 0.34 sec Ao V2 max 160.7 cm/sec Ao max PG 10.3 mmHg Ao max PG (full) 4.9 mmHg LV V1 max PG 5.4 mmHg LV V1 max 116.0 cm/sec
[2016-10-17] MEDS: INSULIN GLARGINE SOLOSTAR 100 UNITS/ML 3 ML PEN SC SCH (21:00)
[2016-10-18] VITALS (8 sets, daily range): BP systolic 163–199; BP diastolic 73–104; PULSE 57–76; TEMP 36.7–36.9; O2SAT 94–98
[2016-10-18] MEDS: HydrALAZINE HCL 20 MG/ML VIAL IV. PRN ×2 (00:15→12:00)
[2016-10-18] MEDS ORDERED: INSULIN ASPART 100 UNITS/ML 3 ML PEN SC SCH (02:00)
[2016-10-18 04:45] LABS: HEMATOCRIT 35.9 % (42-52); MEAN CELL VOLUME 79.1 fL (80-100); MEAN CORPUSCULAR HEMOGLOBIN 26.4 pg (25-34); MEAN CORPUSCULAR HGB CONC 33.4 g/dl (32-36); MEAN PLATELET VOLUME 11.1 fL (7.4-10.4); PLATELET COUNT 146 K/uL (130-400); RED BLOOD COUNT 4.54 M/uL (4.7-6.1); WHITE BLOOD COUNT 8.26 K/uL (4.8-10.8)
[2016-10-18 05:07] LABS: BUN/CREATININE RATIO 10.2 (10-20); CREATININE 3.8 mg/dl (0.60-1.40); POTASSIUM 3.8 mmol/L (3.5-5.1)
[2016-10-18 05:09] LABS: URINE TOTAL PROTEIN 627.3 mg/dl (0-11.9)
[2016-10-18] MEDS: HEPARIN SOD 5000 UNIT/0.5 ML CARP SQ SCH ×3 (05:48→21:36)
[2016-10-18] MEDS: INSULIN ASPART 100 UNITS/ML 3 ML PEN SC SCH ×4 (07:38→21:36)
[2016-10-18] MEDS: AMLODIPINE BESYLATE 5 MG TAB PO SCH (07:39)
[2016-10-18] MEDS: METOPROLOL TARTRATE 50 MG TAB PO SCH ×2 (07:39→21:37)
[2016-10-18] MEDS: ATORVASTATIN 20 MG TAB PO SCH (07:39)
--- NOTE | 2016-10-18 09:00 | Nephrology Progress Note ---
Nephrology Progress Note Date of Service: Oct 18, 2016. Subjective 61 yo male with nephrotic syndrome in setting of previous hep c, htn and diabetes. no nsaids. no tobacco. pt feels his swelling is improved but still swollen in the hands. Objective Date Time Temp Pulse Resp B/P (MAP) Pulse Ox O2 Delivery O2 Flow Rate FiO2 10/18/16 07:19 36.8 70 20 199/104 (135) 96 Room Air 172/85 (114) 10/18/16 04:00 Room Air 10/18/16 03:43 36.7 73 16 167/89 (115) 98 Room Air 10/18/16 00:00 Room Air 10/17/16 23:26 36.9 70 20 187/90 (122) 97 Room Air 171/88 (115) 10/17/16 21:00 36.8 76 18 170/89 (116) 99 Room Air 10/17/16 20:00 Room Air 10/17/16 16:00 Room Air 10/17/16 15:36 36.6 78 18 179/96 (123) 97 Room Air 10/17/16 12:44 79 157/80 (105) 10/17/16 12:16 69 189/95 (126) 10/17/16 12:00 Room Air 10/17/16 11:41 36.7 63 18 173/89 (117) 98 Physical Exam: General-aaox3 Eyes-no scleral icterus ENT-mmm Neck-supple Lungs-cta Heart-rrr Abdomen-bs+ s/nt/nd Extremities-no c/c/e in legs, has some edema in hands Neuro-nonfocal Current Inpatient Medications Medications (Trade) Dose Ordered Sig/Errol Route Start Time Stop Time Status Last Admin Dose Admin Heparin Sodium (Porcine) (Heparin Sq 5000 Unit/0.5ml) 5,000 unit Q8 SQ 10/16/16 22:00 11/15/16 21:59 10/18/16 05:48 5,000 UNIT Acetaminophen (Tylenol Tab) 650 mg Q4H PRN PO 10/16/16 20:15 11/15/16 20:14 10/17/16 07:50 650 MG Ondansetron HCl (Zofran Inj) 4 mg Q6H PRN IV 10/16/16 20:15 11/15/16 20:14 Polyethylene (Miralax Powder Packet) 17 gm DAILY PRN PO 10/16/16 20:15 11/15/16 20:14 Insulin Aspart (novoLOG ASPART) SLIDING SCALE If C... ACHS SC 10/16/16 21:00 11/15/16 20:59 10/18/16 07:38 3 UNITS Glucose (Glucose 40% Gel) 15-30 GRAMS 15 GRAMS... UD PRN PO 10/16/16 20:15 11/15/16 20:14 Glucose (Glucose Chew Tab) 4-8 Tablets 4 Tabl... UD PRN PO 10/16/16 20:15 11/15/16 20:14 Dextrose (Dextrose 50% 50ML Syringe) 25-50ML OF 50% DW IV FOR... UD PRN IV 10/16/16 20:15 11/15/16 20:14 Glucagon (Glucagon Inj) 1 mg UD PRN SQ 10/16/16 20:15 11/15/16 20:14 Miscellaneous Information (Consult Glycemic Management Pharmacy) 1 ea UD N/A 10/16/16 20:21 11/15/16 20:20 Amlodipine Besylate (Norvasc Tab) 10 mg DAILY PO 10/17/16 09:00 11/16/16 08:59 10/18/16 07:39 10 MG Atorvastatin Calcium (Lipitor Tab) 20 mg DAILY PO 10/17/16 09:00 11/16/16 08:59 10/18/16 07:39 20 MG Metoprolol Tartrate (Lopressor Tab) 100 mg BID PO 10/16/16 21:00 11/15/16 20:59 10/18/16 07:39 100 MG Ranitidine HCl (zANTac TAB) 150 mg DAILY PRN PO 10/16/16 20:15 11/15/16 20:14 10/17/16 16:27 150 MG Heparin Sodium (Porcine) (Heparin 10 Unit/ ml 5 ml Flush) 5 ml PRN PRN FLUSH 10/17/16 02:45 11/16/16 02:44 Tramadol/ Acetaminophen (Ultracet Tab) 2 tab Q4H PRN PO 10/17/16 03:15 11/16/16 03:14 Sodium Chloride ([place] Nasal [place]) 1 sprays PRN PRN NA 10/17/16 07:00 11/16/16 06:59 10/17/16 09:19 1 SPRAYS Insulin Glargine (Lantus Solostar Pen) SEE PROTOCOL TEXT HS [place] 10/17/16 21:00 11/16/16 20:59 10/17/16 21:00 10 UNITS Hydralazine HCl (HydrALAZINE INJ) 10 mg Q4 PRN IV. 10/17/16 09:00 11/16/16 08:59 10/18/16 00:15 10 MG Insulin Aspart (novoLOG ASPART) SLIDING SCALE If C... DAILY@0200 [place] 10/18/16 02:00 11/17/16 01:59 Hydralazine HCl (Apresoline Tab) 25 mg BID PO 10/18/16 09:00 11/17/16 08:59 UNV Last 24 Hours Test 10/17/16 09:15 10/17/16 11:23 10/17/16 16:10 10/17/16 20:55 Urine Random Creatinine 120.0 mg/dl Urine Random Total Protein 807.9 mg/dl Urine Protein/Creatinine Ratio 6.7 Bedside Glucose 117 mg/dl 95 mg/dl 118 mg/dl Test 10/18/16 01:55 10/18/16 04:27 10/18/16 04:35 10/18/16 06:41 Bedside Glucose 111 mg/dl 90 mg/dl White Blood Count 8.26 K/uL Red Blood Count 4.54 M/uL Hemoglobin 12.0 g/dL Hematocrit 35.9 % Mean Corpuscular Volume 79.1 fL Mean Corpuscular Hemoglobin 26.4 pg Mean Corpuscular Hemoglobin Concent 33.4 g/dl RDW Standard Deviation 41.2 fL RDW Coefficient of Variation 14.4 % Platelet Count 146 K/uL Mean Platelet Volume 11.1 fL Sodium Level 147 mmol/L Potassium Level 3.8 mmol/L Chloride Level 118 mmol/L Carbon Dioxide Level 26 mmol/L Anion Gap 3.0 mmol/L Blood Urea Nitrogen 39 mg/dl Creatinine 3.80 mg/dl Est Creatinine Clear Calc Drug Dose 30.1 ml/min Estimated GFR () 18.8 Estimated GFR (Non- 16.2 BUN/Creatinine Ratio 10.2 Random Glucose 107 mg/dl Calcium Level 8.0 mg/dl Urine Random Creatinine 90.0 mg/dl Urine Random Total Protein 627.3 mg/dl Urine Protein/Creatinine Ratio 7.0 Assessment & Plan [id number]-. renal us with no hydronephrosis. mild echogenicity. hep c prelim positive. mello, anca, complements, anti-ds dna, spep pending. has nephrotic syndrome with about 6.7 grams of proteinuria. repeated it today and is a true value. diabetes is under much better control with a hga1c of 6.6. albumin is 2.2. trying to control bp as well as possible and added hydralazine this morning. would like to get more data points from the past to note creatinine trend and proteinuria trend. may benefit from renal biopsy. HTN: goal bp is under 130/80 with the nephrotic range proteinuria. currently on lopressor 100mg po bid. norvasc 10mg a day and added hydralazine 25mg po bid this morning. had one dose of 40iv lasix on the . will need diuretics chronically and likely will need to accept a higher creatinine. debating if this is progression of htn and diabetes with worsening nephrotic syndrome and worsening creatinine where we focus in on bp and diabetes control or is there another element is fsgs where immunosuppression may be warranted depending on biopsy.
--- NOTE | 2016-10-18 11:19 | Pharmacy Progress Note ---
Glycemic Control Progress Note Date of Service Oct 18, 2016. Scope Glycemic Pharmacist consulted for glycemic control to write orders per [facility] inpatient glycemic control protocol. Objective Accuchecks BSG (last 24hrs): Test 10/17/16 11:23 10/17/16 16:10 10/17/16 20:55 10/18/16 01:55 Bedside Glucose 117 mg/dl (70-99) 95 mg/dl (70-99) 118 mg/dl (70-99) 111 mg/dl (70-99) Test 10/18/16 04:27 10/18/16 06:41 Random Glucose 107 mg/dl (70-99) Bedside Glucose 90 mg/dl (70-99) HbA1c: Test 10/17/16 04:10 Hemoglobin A1c 6.6 % (4.5-5.6) H Recent Pertinent Medications The patient is currently receiving: * Basal insulin: * Lantus per scale SQ qHS * 0-20 units (0 units for BSG less than 100 mg/dL, 10 units for BSG 100-140 mg/ dL, 20 units for BSG greater than 140 mg/dL) * Bolus Insulin: * NovoLog SQ AC/HS - Goal Range: Low 140 mg/dL - High 180 mg/dL - Correction Factor: 30 mg/dL/unit - Carb ratio of 1 unit per 15 grams CHO consumed Outpatient Anti-Diabetic Meds Lantus 30 units SQ q PM Regular insulin Sliding Scale Humulin 70/30 mix - 10 units SQ q AM Assessment & Plan ASSESSMENT: * See progress note from 10/16/16 for more background info, in short: * Pt receiving SQ basal bolus insulin regimen for hyperglycemia secondary to baseline DM (outpatient regimen on hold) * Patient is currently receiving an average of 20 units of insulin per day (It is possible patient had slightly more insulin yesterday - units given 10/17 with dinner was not documented) * 10 units of basal insulin * 9 units of prandial/correctional insulin * BSGs ranging 64-118 mg/dl over the past 24hrs * Changes needed to insulin regimen: * AM Fasting BSG = 90 mg/dl. - This is improved but remains slightly below goal range for patient based on inpatient targets and co-morbidities. - Continue to dose Lantus based on BSG until needs are determined. * Post-prandial BSGs are in range - No changes today PLAN FOR INPATIENT GLYCEMIC CONTROL: * Basal insulin: * Lantus dose per BSG HS - If BSG is below 100mg/dL - hold Lantus - If BSG is 100-140mg/dL - give Lantus 10 units - If BSG is above 140mg/dL - give Lantus 20 units * Bolus Insulin: * NovoLog SQ AC/HS - Goal Range: Low 140 mg/dL - High 180 mg/dL - Correction Factor: 30 mg/dL/unit - Carb ratio of 1 unit per 15 grams CHO consumed RECOMMENDATIONS FOR DISCHARGE: * A1c is WNL - may continue home regimen barring any significant hypo- or hyper - glycemic events * Please note that the plan above was derived based on current level of insulin resistance and hospital stress. These recommendations are appropriate for inpatient admission only. Plan of care upon discharge will need to be reassessed to avoid potential outpatient hypo/hyperglycemia. Thank you.
--- NOTE | 2016-10-18 12:12 | Progress Note ---
Medicine Progress Note Date & Time of Visit: Oct 18, 2016 at 11:58. Subjective Pt was seen and examined Lying in bed with no distress Pt said that his swelling improved Denies any chest pain, palpitation, dizziness and SOB Objective Last 8 Hrs Date Time Temp Pulse Resp B/P (MAP) Pulse Ox O2 Delivery O2 Flow Rate FiO2 10/18/16 09:08 180/91 (120) 10/18/16 07:19 36.8 70 20 199/104 (135) 96 Room Air 172/85 (114) 10/18/16 04:00 Room Air Physical Exam: General- No acute distress Head- atraumatic Eyes- PERRL, EOMI ENT- oropharynx clear Neck- supple, no JVD Lungs- clear to auscultation Heart- regular rhythm; no murmur Abdomen- normal bowel sounds, soft Extremities- no calf tenderness, + LE edema B/L Neuro- alert, oriented x 3; PERRL, EOMI Skin- warm & dry Laboratory Results: Last 24 Hours Test 10/17/16 16:10 10/17/16 20:55 10/18/16 01:55 10/18/16 04:27 Bedside Glucose 95 mg/dl 118 mg/dl 111 mg/dl White Blood Count 8.26 K/uL Red Blood Count 4.54 M/uL Hemoglobin 12.0 g/dL Hematocrit 35.9 % Mean Corpuscular Volume 79.1 fL Mean Corpuscular Hemoglobin 26.4 pg Mean Corpuscular Hemoglobin Concent 33.4 g/dl RDW Standard Deviation 41.2 fL RDW Coefficient of Variation 14.4 % Platelet Count 146 K/uL Mean Platelet Volume 11.1 fL Sodium Level 147 mmol/L Potassium Level 3.8 mmol/L Chloride Level 118 mmol/L Carbon Dioxide Level 26 mmol/L Anion Gap 3.0 mmol/L Blood Urea Nitrogen 39 mg/dl Creatinine 3.80 mg/dl Est Creatinine Clear Calc Drug Dose 30.1 ml/min Estimated GFR () 18.8 Estimated GFR (Non- 16.2 BUN/Creatinine Ratio 10.2 Random Glucose 107 mg/dl Calcium Level 8.0 mg/dl Test 10/18/16 04:35 10/18/16 06:41 Urine Random Creatinine 90.0 mg/dl Urine Random Total Protein 627.3 mg/dl Urine Protein/Creatinine Ratio 7.0 Bedside Glucose 90 mg/dl Assessment & Plan Hypertensive emergency Nitro paste given in ER with no drop on BP Pt said that he is only taking 2 med for his BP now. Lasix was on hold for about 3 weeks due to worsening kidney function Lisinopril on Hold BP has been improved Will add IV hydralazine prn for SBP above 170 started on hydralazine 25mg BID Continue monitor BP closely Acute Renal Failure on CKD Mostly related to uncontrolled HTN and DM Creatine on admission 3.8 Creatine today 3.6 Elevated proteinuria has been off of lasix for about 3 weeks Lisinopril on hold Avoid nephrotoxic agent Renal u/s pending Nephrology consulted 10/18 Creatine back to 3.8 lasix and lisinopril have been held Dr. Sheth spoke to a kizzy staff at [facility], his creatine was 1.8 back on 11/15 Will consider to transfer to [place] for renal biopsy once BP stable DMII Hba1c 6.6 controlled Continue current management Stable Obesity Diet and exercise Right Knee tenderness Due to osteoarthritis Tramadol ordered PRN. DVT px on heparin subq CODE STATUS FULL CODE Consultants: Nephrology Current Inpatient Medications: Current Inpatient Medications Medications (Trade) Dose Ordered Sig/Errol Route Start Time Stop Time Status Last Admin Dose Admin Heparin Sodium (Porcine) (Heparin Sq 5000 Unit/0.5ml) 5,000 unit Q8 SQ 10/16/16 22:00 11/15/16 21:59 10/18/16 05:48 5,000 UNIT Acetaminophen (Tylenol Tab) 650 mg Q4H PRN PO 10/16/16 20:15 11/15/16 20:14 10/17/16 07:50 650 MG Ondansetron HCl (Zofran Inj) 4 mg Q6H PRN IV 10/16/16 20:15 11/15/16 20:14 Polyethylene (Miralax Powder Packet) 17 gm DAILY PRN PO 10/16/16 20:15 11/15/16 20:14 Insulin Aspart (novoLOG ASPART) SLIDING SCALE If C... ACHS SC 10/16/16 21:00 11/15/16 20:59 10/18/16 07:38 3 UNITS Glucose (Glucose 40% Gel) 15-30 GRAMS 15 GRAMS... UD PRN PO 10/16/16 20:15 11/15/16 20:14 Glucose (Glucose Chew Tab) 4-8 Tablets 4 Tabl... UD PRN PO 10/16/16 20:15 11/15/16 20:14 Dextrose (Dextrose 50% 50ML Syringe) 25-50ML OF 50% DW IV FOR... UD PRN IV 10/16/16 20:15 11/15/16 20:14 Glucagon (Glucagon Inj) 1 mg UD PRN SQ 10/16/16 20:15 11/15/16 20:14 Miscellaneous Information (Consult Glycemic Management Pharmacy) 1 ea UD N/A 10/16/16 20:21 11/15/16 20:20 Amlodipine Besylate (Norvasc Tab) 10 mg DAILY PO 10/17/16 09:00 11/16/16 08:59 10/18/16 07:39 10 MG Atorvastatin Calcium (Lipitor Tab) 20 mg DAILY PO 10/17/16 09:00 11/16/16 08:59 10/18/16 07:39 20 MG Metoprolol Tartrate (Lopressor Tab) 100 mg BID PO 10/16/16 21:00 11/15/16 20:59 10/18/16 07:39 100 MG Ranitidine HCl (zANTac TAB) 150 mg DAILY PRN PO 10/16/16 20:15 11/15/16 20:14 10/17/16 16:27 150 MG Heparin Sodium (Porcine) (Heparin 10 Unit/ ml 5 ml Flush) 5 ml PRN PRN FLUSH 10/17/16 02:45 11/16/16 02:44 Tramadol/ Acetaminophen (Ultracet Tab) 2 tab Q4H PRN PO 10/17/16 03:15 11/16/16 03:14 Sodium Chloride ([place] Nasal [place]) 1 sprays PRN PRN NA 10/17/16 07:00 11/16/16 06:59 10/17/16 09:19 1 SPRAYS Insulin Glargine (Lantus Solostar Pen) SEE PROTOCOL TEXT HS SC 10/17/16 21:00 11/16/16 20:59 10/17/16 21:00 10 UNITS Hydralazine HCl (HydrALAZINE INJ) 10 mg Q4 PRN IV. 10/17/16 09:00 11/16/16 08:59 10/18/16 00:15 10 MG Insulin Aspart (novoLOG ASPART) SLIDING SCALE If C... DAILY@0200 [place] 10/18/16 02:00 11/17/16 01:59 Hydralazine HCl (Apresoline Tab) 25 mg BID PO 10/18/16 09:00 11/17/16 08:59 10/18/16 09:26 25 MG
[2016-10-18] MEDS: RANITIDINE HCL 150 MG TAB PO PRN (21:34)
[2016-10-18] MEDS: INSULIN GLARGINE SOLOSTAR 100 UNITS/ML 3 ML PEN SC SCH (21:35)
[2016-10-19] VITALS (7 sets, daily range): BP systolic 157–182; BP diastolic 82–97; PULSE 61–72; TEMP 36.4–36.7; O2SAT 93–96
[2016-10-19] MEDS: ACETAMINOPHEN 325 MG TAB PO PRN (03:02)
[2016-10-19] MEDS: HydrALAZINE HCL 20 MG/ML VIAL IV. PRN (04:54)
[2016-10-19 05:17] LABS: BUN/CREATININE RATIO 9.6 (10-20); CREATININE 3.9 mg/dl (0.60-1.40); POTASSIUM 3.8 mmol/L (3.5-5.1)
[2016-10-19] MEDS: HEPARIN SOD 5000 UNIT/0.5 ML CARP SQ SCH ×2 (05:58→13:59)
[2016-10-19] MEDS: INSULIN ASPART 100 UNITS/ML 3 ML PEN SC SCH ×2 (07:43→11:00)
[2016-10-19] MEDS: METOPROLOL TARTRATE 50 MG TAB PO SCH (07:45)
[2016-10-19] MEDS: AMLODIPINE BESYLATE 5 MG TAB PO SCH (07:46)
[2016-10-19] MEDS: ATORVASTATIN 20 MG TAB PO SCH (07:46)
--- NOTE | 2016-10-19 09:08 | Pharmacy Progress Note ---
Glycemic Control Progress Note Date of Service Oct 19, 2016. Scope Glycemic Pharmacist consulted for glycemic control to write orders per [facility] inpatient glycemic control protocol. Objective Accuchecks BSG (last 24hrs): Test 10/18/16 11:23 10/18/16 16:36 10/18/16 20:28 10/19/16 04:44 Bedside Glucose 150 mg/dl (70-99) 134 mg/dl (70-99) 158 mg/dl (70-99) Random Glucose 84 mg/dl (70-99) Test 10/19/16 06:34 Bedside Glucose 80 mg/dl (70-99) HbA1c: Test 10/17/16 04:10 Hemoglobin A1c 6.6 % (4.5-5.6) H Recent Pertinent Medications The patient is currently receiving: * Basal insulin: * Lantus per scale SQ qHS - given 20 units on 10/18 * Bolus Insulin: * NovoLog SQ AC/HS - Goal Range: Low 140 mg/dL - High 180 mg/dL - Correction Factor: 30 mg/dL/unit - Carb ratio of 1 unit per 15 grams CHO consumed Outpatient Anti-Diabetic Meds Basal Insulin * Lantus 30 units SQ qHS Pre-mixed basal (intermediate acting)/bolus Insulin * Humulin 70/30 10 units SQ qAM Bolus Insulin * Regular insulin SQ sliding scale; 2-12 units Assessment & Plan ASSESSMENT: * See progress note from 10/16/16 for more background info, in short: * Pt receiving SQ basal bolus insulin regimen for hyperglycemia secondary to baseline DM (outpatient regimen on hold) * Patient is currently receiving an average of 36 units of insulin per day * 20 units of basal insulin * 16 units of prandial/correctional insulin * BSGs ranging 80 - 156 mg/dl over the past 24hrs * Changes needed to insulin regimen: * AM Fasting BSG = 80 mg/dl. - This is below goal range for patient based on inpatient targets and co- morbidities, therefore, will decrease basal insulin. * Post-prandial BSGs are below goal range - Loosen CF/CR to avoid hypoglycemia * Anticipate patient needing a total of ~30 units per day PLAN FOR INPATIENT GLYCEMIC CONTROL: * Basal insulin: * Lantus 10-15 units SQ qHS * 10 units for BSG 140 mg/dL or less * 15 units for BSG greater than 140 mg/dL * Bolus Insulin: * NovoLog SQ AC/HS - Goal Range: Low 140 mg/dL - High 180 mg/dL - Loosen Correction Factor: 40 mg/dL/unit - Continue Carb ratio of 1 unit per 15 grams CHO consumed RECOMMENDATIONS FOR DISCHARGE: * A1c is WNL - may continue home regimen barring any significant hypo- or hyper - glycemic events * Please note that the plan above was derived based on current level of insulin resistance and hospital stress. These recommendations are appropriate for inpatient admission only. Plan of care upon discharge will need to be reassessed to avoid potential outpatient hypo/hyperglycemia. Thank you.
--- NOTE | 2016-10-19 10:31 | Progress Note ---
Medicine Progress Note Date & Time of Visit: Oct 19, 2016 at 10:04. Subjective Pt was seen and examined Lying in bed with no distress with 2 guards present in the room Pt said that he did not sleep well last night He said that his arm looks more swelling today He denies any chest pain, palpitation, dizziness and SOB Objective Last 8 Hrs Date Time Temp Pulse Resp B/P (MAP) Pulse Ox O2 Delivery O2 Flow Rate FiO2 10/19/16 09:47 165/88 (113) 10/19/16 07:44 36.7 72 20 174/88 (116) 96 Room Air 10/19/16 04:00 93 Room Air 10/19/16 03:10 36.6 66 20 182/83 (116) 93 Room Air Physical Exam: General- No acute distress Head- atraumatic Eyes- PERRL, EOMI ENT- oropharynx clear Neck- supple, no JVD Lungs- clear to auscultation Heart- regular rhythm; no murmur Abdomen- normal bowel sounds, soft Extremities- no calf tenderness, +Swelling in B/L Lower extremities and both hands Neuro- alert, oriented x 3; PERRL, EOMI Skin- warm & dry Laboratory Results: Last 24 Hours Test 10/18/16 11:23 10/18/16 16:36 10/18/16 20:28 10/19/16 04:44 Bedside Glucose 150 mg/dl 134 mg/dl 158 mg/dl Sodium Level 147 mmol/L Potassium Level 3.8 mmol/L Chloride Level 118 mmol/L Carbon Dioxide Level 25 mmol/L Anion Gap 4.0 mmol/L Blood Urea Nitrogen 38 mg/dl Creatinine 3.90 mg/dl Est Creatinine Clear Calc Drug Dose 29.2 ml/min Estimated GFR () 18.2 Estimated GFR (Non- 15.7 BUN/Creatinine Ratio 9.6 Random Glucose 84 mg/dl Calcium Level 8.0 mg/dl Test 10/19/16 06:34 Bedside Glucose 80 mg/dl Assessment & Plan Hypertensive emergency Nitro paste given in ER with no drop on BP Pt said that he is only taking 2 med for his BP now. Lasix was on hold for about 3 weeks due to worsening kidney function Lisinopril on Hold BP has been improved Will add IV hydralazine prn for SBP above 170 hydralazine increase to 50mg BID Continue amlodipine 10mg and Metoprol 100mg Continue monitor BP closely Acute Renal Failure on CKD Mostly related to uncontrolled HTN and DM Creatine on admission 3.8 Creatine 3.6 Elevated proteinuria has been off of lasix for about 3 weeks Lisinopril on hold Avoid nephrotoxic agent Renal u/s pending Nephrology consulted 10/19 Nephrotic syndrome Creatine back to 3.9 today Renal u/s shoed moderate increase in cortical echogenicity which may indicate a component of nonobstructive renal insufficiency. lasix and lisinopril have been held Dr. Sheth spoke to a kizzy staff at [facility], his creatine was 1.8 back on 11/15 Will consider to transfer to [place] for renal biopsy once BP stable Case discussed with Nephrology Dr. Sheth today that recommended to give albumin with 40 mg lasix ANCA, SHANNAN, Complement and Anti DS DNA pending Random urine protein 807 (elevated) and protein/creatin ration 6 (elevated) Case discussed with [place] hospitalist Dr. Osei that agreed to accept the patient for further eval for the renal failure Hx Hep C Pt said that he was treated for 6 months Hep C ab positive and Hep b antigen negative Hep C Viral load pending DMII Hba1c 6.6 controlled Continue current management Stable Obesity Counseling on diet and exercise Right Knee tenderness Due to osteoarthritis Tramadol ordered PRN. DVT px on heparin subq CODE STATUS FULL CODE Disposition Will transfer to [facility] Pt had a femoral line that will need to get changed once he gets to [place] ( difficult to find peripheral access) Will keep the line for the transport Case discussed with Dr. Grissom, medical oncologist at [facility] ( Due to security reason, we should not tell pt which facility that he is going to be transferred) Consultants: Nephrology Current Inpatient Medications: Current Inpatient Medications Medications (Trade) Dose Ordered Sig/Errol Route Start Time Stop Time Status Last Admin Dose Admin Heparin Sodium (Porcine) (Heparin Sq 5000 Unit/0.5ml) 5,000 unit Q8 SQ 10/16/16 22:00 11/15/16 21:59 10/19/16 05:58 5,000 UNIT Acetaminophen (Tylenol Tab) 650 mg Q4H PRN PO 10/16/16 20:15 11/15/16 20:14 10/19/16 03:02 650 MG Ondansetron HCl (Zofran Inj) 4 mg Q6H PRN IV 10/16/16 20:15 11/15/16 20:14 Polyethylene (Miralax Powder Packet) 17 gm DAILY PRN PO 10/16/16 20:15 11/15/16 20:14 Insulin Aspart (novoLOG ASPART) SLIDING SCALE If C... ACHS SC 10/16/16 21:00 11/15/16 20:59 10/19/16 07:43 2 UNITS Glucose (Glucose 40% Gel) 15-30 GRAMS 15 GRAMS... UD PRN PO 10/16/16 20:15 11/15/16 20:14 Glucose (Glucose Chew Tab) 4-8 Tablets 4 Tabl... UD PRN PO 10/16/16 20:15 11/15/16 20:14 Dextrose (Dextrose 50% 50ML Syringe) 25-50ML OF 50% DW IV FOR... UD PRN IV 10/16/16 20:15 11/15/16 20:14 Glucagon (Glucagon Inj) 1 mg UD PRN SQ 10/16/16 20:15 11/15/16 20:14 Miscellaneous Information (Consult Glycemic Management Pharmacy) 1 ea UD N/A 10/16/16 20:21 11/15/16 20:20 Amlodipine Besylate (Norvasc Tab) 10 mg DAILY PO 10/17/16 09:00 11/16/16 08:59 10/19/16 07:46 10 MG Atorvastatin Calcium (Lipitor Tab) 20 mg DAILY PO 10/17/16 09:00 11/16/16 08:59 10/19/16 07:46 20 MG Metoprolol Tartrate (Lopressor Tab) 100 mg BID PO 10/16/16 21:00 11/15/16 20:59 10/19/16 07:45 100 MG Ranitidine HCl (zANTac TAB) 150 mg DAILY PRN PO 10/16/16 20:15 11/15/16 20:14 10/18/16 21:34 150 MG Heparin Sodium (Porcine) (Heparin 10 Unit/ ml 5 ml Flush) 5 ml PRN PRN FLUSH 10/17/16 02:45 11/16/16 02:44 Tramadol/ Acetaminophen (Ultracet Tab) 2 tab Q4H PRN PO 10/17/16 03:15 11/16/16 03:14 10/19/16 06:03 2 TAB Sodium Chloride ([place] Nasal [place]) 1 sprays PRN PRN NA 10/17/16 07:00 11/16/16 06:59 10/17/16 09:19 1 SPRAYS Insulin Glargine (Lantus Solostar Pen) SEE PROTOCOL TEXT HS SC 10/17/16 21:00 11/16/16 20:59 10/18/16 21:35 20 UNITS Hydralazine HCl (HydrALAZINE INJ) 10 mg Q4 PRN IV. 10/17/16 09:00 11/16/16 08:59 10/19/16 04:54 10 MG Hydralazine HCl (Apresoline Tab) 25 mg TODAY@1000 ONCE PO 10/19/16 10:00 10/19/16 10:01 10/19/16 09:48 25 MG Hydralazine HCl (Apresoline Tab) 50 mg BID PO 10/19/16 21:00 11/18/16 20:59
--- NOTE | 2016-10-19 11:08 | Discharge Summary ---
Discharge Summary Date of Service Oct 19, 2016. Discharge Summary Admission Date: Oct 16, 2016 at 20:09 Discharge Disposition: Acute care facility Principal Diagnosis: Acute kidney injury on CKD stage 3 Secondary Diagnoses/Problems: Hypertensive emergency DM type 2 - controlled Nephrotic Syndrome Hx Hep C Obesity Procedures: (RENAL)RETROPERITONEA COMP HISTORY: Renal insufficiency arlene COMPARISON: None. FINDINGS: Right kidney: Maximum dimension 12.1 cm. No evidence for hydronephrosis. Mild increase in cortical echogenicity. Left kidney: Maximum dimension 12.2 cm. No evidence for hydronephrosis. Mild increase in renal cortical echogenicity Bladder: No bladder wall thickening. The bilateral ureteral jets were identified. IMPRESSION: 1. No evidence for hydronephrosis. 2. Moderate increase in cortical echogenicity which may indicate a component of nonobstructive renal insufficiency. The above report was generated using voice recognition software. It may contain grammatical, syntax or spelling errors. Electronically signed by: Hiram York M.D. 10/17/2016 11:43 AM Dictated Date/Time: 10/17/2016 11:42 AM Consultations: Nephrology Admission Information HPI (per Admitting provider): 61 yoM prisoner from local detention with a h/o HTN presents with symptoms of low energy, shortness of breath, weight gain 12 pounds over the past 3 days. He denies any chest pain or headaches. He reports his BP being high over the past 3 days, also. He states that he has been taking Lasix daily for at least 3 years, which was started for swelling at the long-term. He came into the ER in August for L flank pain and was found to have a creatinine 3.3, microscopic hematuria and proteinuria, and a CT a/p which showed some bilateral perinephric fat stranding and no kidney stone. He was sent home with orders to stop Lasix, which he has been off of now for 3 weeks. His PCP at the long-term was going to start it back today at 40mg, which is 50% his normal dose, but he was sent to the ER instead. He typically takes lisinopril, amlodipine and lopressor for blood pressure and reports compliance with medications, although he doesn't actually know what he takes. He reports having a non-productive cough and states he feels like he has a cold. He denies sinus congestion, fevers, chills , nausea, vomiting, diarrhea or other changes in bowel. He has persistent chronic R knee pain and there is no swelling or erythema on exam. He also reported knee pain at his last ER visit. Xray today reveals DJD, and we discussed nono-urgent possible options for treatment including tramadol, steroid injections, PT and knee replacement. He denies any issues with urination, states that he voids completely and there is no dysuria, hematuria or urinary urgency. He does report some L flank pain. He says his swelling is worse in his hands and lower legs. He is progressively short of breath at rest now, which is a change from his baseline exercise tolerance. . Physical Exam (per Admitting): GEN: obese, in no acute distress, alert and appropriate HEENT: NC/AT, PERRL, normal sclerae, fundoscopic exam normal CARDIO: reg rate, S1/2 heard without m/g/r, no JVD, 2+ radial pulses LUNGS: CTA bilaterally, no crackles, rales or wheezes, good diaphragmatic excursion ABD: soft, non-tender, non-distended, no rebound or guarding, +BS EXTREMITY: RP and DP palpable 2+ bilat, swelling of hands bilaterlly and trace edema of lower extremities, extremities are warm and well-perfused NEURO: CN 2-12 grossly intact, sensation intact throughout, no gross focal deficits, speaking articulately, mentating clearly MUSC: 5/5 strength throughout, moves around the bed with ease, no focal deficits and moves all extremities equally SKIN: warm and dry, multiple tattooes Hospital Course Hypertensive emergency Nitro paste given in ER with no drop on BP Pt said that he is only taking 2 med for his BP now. Lasix was on hold for about 3 weeks due to worsening kidney function Lisinopril on Hold BP has been improved Will add IV hydralazine prn for SBP above 170 hydralazine increase to 50mg BID Continue amlodipine 10mg and Metoprol 100mg Continue monitor BP closely Acute Renal Failure on CKD Mostly related to uncontrolled HTN and DM Creatine on admission 3.8 Creatine 3.6 Elevated proteinuria has been off of lasix for about 3 weeks Lisinopril on hold Avoid nephrotoxic agent Renal u/s pending Nephrology consulted 10/19 Nephrotic syndrome Creatine back to 3.9 today Renal u/s shoed moderate increase in cortical echogenicity which may indicate a component of nonobstructive renal insufficiency. lasix and lisinopril have been held Dr. Sheth spoke to a kizzy staff at [facility], his creatine was 1.8 back on 11/15 Will consider to transfer to [place] for renal biopsy once BP stable Case discussed with Nephrology Dr. Sheth today that recommended to give albumin with 40 mg lasix ANCA, SHANNAN, Complement and Anti DS DNA pending Random urine protein 807 (elevated) and protein/creatin ration 6 (elevated) Case discussed with [place] hospitalist Dr. Osei that agreed to accept the patient for further eval for the renal failure Hx Hep C Pt said that he was treated for 6 months Hep C ab positive and Hep b antigen negative Hep C Viral load pending DMII Hba1c 6.6 controlled Continue current management Stable Obesity Counseling on diet and exercise Right Knee tenderness Due to osteoarthritis Tramadol ordered PRN. DVT px on heparin subq CODE STATUS FULL CODE Disposition Will transfer to [facility] Pt had a femoral line that will need to get changed once he gets to [place] ( difficult to find peripheral access) Will keep the line for the transport Total time spent on discharge = 50 minutes This includes examination of the patient, discharge planning, medication reconciliation, and communication with other providers. Discharge Instructions Pt will be transferred to [facility] Case discussed with hospital physician Dr. Osei who accepted the patient Reason for transfer Worsening acute kidney injury with nephrotic syndrome Need renal biopsy Additional Copies To Shun Grissom M.D.
[2016-10-19] MEDS ORDERED: ALBUMIN 25% 50 ML with FUROSEMIDE INJ 40 MG IV ONE ×2 (11:30)
[2016-10-19 13:34] LABS: HEPATITIS C RNA TMA QUAL Detected
[2016-10-19] MEDS: RANITIDINE HCL 150 MG TAB PO PRN (14:19)
[2016-10-23 00:37] LABS: ALBUMIN 2.2 G/DL (3.8-4.8); TOTAL PROTEIN 5.1 G/DL (6.2-8.3)
== END 2016-10-19 15:25 | disposition short-term general hospital (02) | DRG 683 ==
LOC: C.EDC 15:25 → EDBD 15:25 → C.2T 20:09 → ENRESERV 20:18
PROVIDERS: ADMIT Hospitalist; ATTEND Internal Medicine
DX: N17.9 Acute kidney failure, unspecified (principal); I16.1 Hypertensive emergency; Z68.41 Body mass index [BMI] 40.0-44.9, adult; N18.3 Chronic kidney disease, stage 3 (moderate); I12.9 Hypertensive chronic kidney disease with stage 1 through stage 4 chronic kidney disease, or unspecified chronic kidney disease; E11.22 Type 2 diabetes mellitus with diabetic chronic kidney disease; B19.20 Unspecified viral hepatitis C without hepatic coma; E78.5 Hyperlipidemia, unspecified; G89.29 Other chronic pain; M17.11 Unilateral primary osteoarthritis, right knee; E66.9 Obesity, unspecified; Z87.891 Personal history of nicotine dependence; Z79.4 Long term (current) use of insulin; Z79.899 Other long term (current) drug therapy; I16.0 Hypertensive urgency; N18.4 Chronic kidney disease, stage 4 (severe); E11.21 Type 2 diabetes mellitus with diabetic nephropathy; E11.649 Type 2 diabetes mellitus with hypoglycemia without coma; Z86.19 Personal history of other infectious and parasitic diseases

== ENCOUNTER 2016-10-27 12:13 | Inpatient (IN) | payer OTHER ==
[~2016-10-27] VITALS: Ht 182.9 cm; Wt 127.1 kg
[~2016-10-27 12:13] MED LIST changes: -ACETAMINOPHEN 325 MG TAB PO PRN; -APR/25 PO; -APR10 PO; -CARV25TA2 PO; -FURO-85 PO; -HEPARIN SOD 5000 UNIT/0.5 ML CARP SQ SCH; -ONDANSETRON INJ 2 MG/ML 2 ML VIAL IV PRN; -TORS100T13 PO; -TORS20TA2 PO
[2016-10-27] MEDS ORDERED: HydrALAZINE HCL 20 MG/ML VIAL IV. STA ×2 (12:33→14:26)
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
--- NOTE | 2016-10-27 12:53 | DIAGNOSTIC IMAGING REPORT ---
CHEST ONE VIEW PORTABLE HISTORY: 61 years-old Male weight gain COMPARISON: 10/16/2016 TECHNIQUE: Portable upright AP view of the chest FINDINGS: Cardiomediastinal and hilar silhouettes are within normal limits and are unchanged. There is no pneumothorax, pleural effusion, focal airspace consolidation or overt edema. Upper abdominal structures are within normal limits. The bones appear to be grossly intact. IMPRESSION: No acute cardiopulmonary process. The above report was generated using voice recognition software. It may contain grammatical, syntax or spelling errors. Electronically signed by: Agustin Navarrete M.D. 10/27/2016 12:52 PM Dictated Date/Time: 10/27/2016 12:51 PM
[2016-10-27] MEDS ORDERED: FURO-85 PO (12:55)
[2016-10-27] MEDS ORDERED: CARV25TA2 PO (12:55)
[2016-10-27 13:37] LABS: BASO % 0.4 %; BASO ABS # 0.04 K/uL (0-0.2); COMPLETE YES; EOS % 3.1 %; HEMATOCRIT 34.9 % (42-52); IG% 0.2 %; LYMPH % 33.3 %; LYMPH ABS # 3.25 K/uL (1.2-3.4); MEAN CELL VOLUME 79.1 fL (80-100); MEAN CORPUSCULAR HEMOGLOBIN 26.8 pg (25-34); MEAN CORPUSCULAR HGB CONC 33.8 g/dl (32-36); MEAN PLATELET VOLUME 11.6 fL (7.4-10.4); MONO % 15.2 %; NEUT % 47.8 %; PLATELET COUNT 188 K/uL (130-400); RED BLOOD COUNT 4.41 M/uL (4.7-6.1); WHITE BLOOD COUNT 9.76 K/uL (4.8-10.8)
[2016-10-27 14:22] LABS: BUN/CREATININE RATIO 11.9 (10-20); CALCIUM 8.4 mg/dl (8.5-10.1); CKMB/CK RATIO 1.2 (0-3.0); CREATININE 5.3 mg/dl (0.60-1.40); POTASSIUM 3.9 mmol/L (3.5-5.1)
[2016-10-27] MEDS ORDERED: ONDANSETRON INJ 2 MG/ML 2 ML VIAL IV PRN (15:15)
[2016-10-27] MEDS ORDERED: ACETAMINOPHEN 325 MG TAB PO PRN (15:15)
[2016-10-27] MEDS ORDERED: GLUCOSE 40% GEL 15 GM TUBE PO PRN (15:30)
[2016-10-27] MEDS ORDERED: DEXTROSE 50% 50 ML SYR IV PRN (15:30)
[2016-10-27] MEDS ORDERED: GLUCAGON FOR INJ 1 MG VIAL SQ PRN (15:30)
[2016-10-27] MEDS ORDERED: GLUCOSE 10 TABS/TUBE PO PRN (15:30)
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
[2016-10-27 16:10] VITALS: O2SAT 98
[2016-10-27 16:19] VITALS: BP 179/91; PULSE 94; TEMP 36.8; Ht 182.9 cm; Wt 127.1 kg
[2016-10-27] MEDS ORDERED: HydrALAZINE HCL 20 MG/ML VIAL IV. PRN (16:30)
[2016-10-27] MEDS ORDERED: HydrALAZINE HCL 20 MG/ML VIAL ONE (16:48)
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
[2016-10-27 19:13] VITALS: BP 175/79; PULSE 98; TEMP 37; O2SAT 99
--- NOTE | 2016-10-27 19:21 | DIAGNOSTIC IMAGING REPORT ---
(RENAL)RETROPERITONEA COMP HISTORY: Renal insufficiency ARF COMPARISON: 10/17/2016 FINDINGS: Right kidney: Maximum dimension 10.8 cm. No evidence for hydronephrosis. Increased cortical echogenicity Left kidney: Maximum dimension 10.4 cm. No evidence for hydronephrosis. Increased cortical echogenicity. Bladder: No bladder wall thickening. The bilateral ureteral jets were identified. IMPRESSION: 1. No evidence for hydronephrosis. 2. Increased cortical echogenicity suggesting nonobstructive renal insufficiency. 3. No change from the prior exam The above report was generated using voice recognition software. It may contain grammatical, syntax or spelling errors. Electronically signed by: Hiram York M.D. 10/27/2016 7:19 PM Dictated Date/Time: 10/27/2016 7:17 PM
[2016-10-27] MEDS: INSULIN ASPART 100 UNITS/ML 3 ML PEN SC SCH ×2 (19:28→20:59)
[2016-10-27] MEDS ORDERED: LABETALOL HCL IV 5 MG/ML 20ML IV PRN (20:15)
[2016-10-27] MEDS: ATORVASTATIN 20 MG TAB PO SCH (20:55)
[2016-10-27] MEDS: CARVEDILOL 25 MG TAB PO SCH (20:55)
[2016-10-27] MEDS: HEPARIN SOD 5000 UNIT/0.5 ML CARP SQ SCH (20:59)
[2016-10-27] MEDS: INSULIN GLARGINE SOLOSTAR 100 UNITS/ML 3 ML PEN SC SCH (20:59)
[2016-10-27 21:45] LABS: URINE APPEARANCE CLEAR (CLEAR); URINE BILIRUBIN NEG (NEG); URINE COLOR YELLOW; URINE EPITHELIAL CELL AUTO >30 /lpf (0-5); URINE NITRITE NEG (NEG); URINE SPECIFIC GRAVITY 1.019 (1.000-1.030); UROBILINOGEN NEG (NEG); ZZUR CULT IF INDIC CLEAN CATCH NO
[2016-10-27 21:46] LABS: MANUAL MICROSCOPIC REQUIRED? NO; REVIEW REQ? YES
[2016-10-27 23:58] VITALS: BP 159/85; PULSE 88; TEMP 37; O2SAT 98
[2016-10-28 04:13] VITALS: BP 154/75; PULSE 82; TEMP 36.7; O2SAT 97
[2016-10-28] MEDS: HEPARIN SOD 5000 UNIT/0.5 ML CARP SQ SCH ×3 (06:27→21:28)
[2016-10-28 07:15] LABS: CHOLESTEROL/HDL RATIO 3.7
[2016-10-28 07:33] VITALS: BP 149/85; PULSE 74; TEMP 36.7; O2SAT 97
[2016-10-28] MEDS ORDERED: PNEUMOCOCCAL ADMINISTRATION CHARGE ONE (09:00)
[2016-10-28] MEDS ORDERED: PNEUMOCOCCAL POLYSACCHARIDES 25 MCG/0.5 ML VIAL/SYR IM. ONE (09:00)
[2016-10-28] MEDS: RANITIDINE HCL 150 MG TAB PO SCH (09:04)
[2016-10-28] MEDS: CARVEDILOL 25 MG TAB PO SCH ×2 (09:04→21:37)
[2016-10-28] MEDS: AMLODIPINE BESYLATE 5 MG TAB PO SCH (09:04)
[2016-10-28] MEDS: INSULIN ASPART 100 UNITS/ML 3 ML PEN SC SCH ×4 (09:07→21:00)
--- NOTE | 2016-10-28 10:30 | Progress Note ---
Internal Med Progress Note Date of Service: Oct 28, 2016. Provider Documentation: SUBJECTIVE: feels fine , denies of any headache , no SOB or chest discomfort BP improved after IV Labetalol OBJECTIVE: Vital Signs-as noted below Exam: General-no sign of distress Eyes-sclera non icteric ENT-NAD Neck-no JVD Lungs-no rales or wheeze noted Heart-regular S1/S2, no JVD , + 1 -2 edema on rt ankle , no edema on left Abdomen-soft, non tender Extremities-multiple tattoo benedict on arms and torose , no rash or deformity noted Neuro-AAO x3, no focal neurological deficit Lab data as noted below. ASSESSMENT & PLAN: DONNA ON CKD 4 WITH NEPHROTIC SYNDROME S/p renal biopsy on 10/23/16 at [facility] [place]- Pathology : consistent with advanced diabetic nephropathy Glomerulosclerosis Arteriolar Hyalinosis /interstitial fibrosis , tubular atrophy interstitial inflammation with eosinophilia work up in [facility] : C3/C4 level -nl lipid panel -nl SHANNAN -negative Cryoglobulin level -still pending HIV screen -negative Renal USG : no evidence of hydronephrosis increased cortical echogenicity suggestive non obstructive renal insufficiency no change form prior EXAM Placed on renal diet with 1500 cc fluid restriction and 2g sodium restriction Daily standing weights, I&O's urine protein + 3 , random total protein > 600 , Consulted nephrology appreciate input Lasix on hold for now for DONNA morning Lab ordered pt is very difficult stick (hx of IV drug abuse in past ) ordered for PICC line HYPERLIPIDEMIA : Continued with statin added aspirin 81 mg daily due to nephrotic syndrome HYPERTENSIVE URGENCY hx of long standing poorly controlled HTN -possible causing nephrosclerosis/DONNA on CKD Continue PRN hydralazine/added IV Prn Labetalol last night pt was discharged from [facility] on amlodipine 10 mg daily and Coreg 25 mg BID-continued Lasix 20mg daily on hold for DONNA Goal SBP 140s in next days per nephrology HX HEPATITIS C ordered for Hep C viral load and RNA qualitative study hx of IV drug abuse per pt -he was on Hep C treatment twice daily for 6 months ( during [id number] ) while in [place] [facility] will check repeat labs GI eval will be requested after lab result DM TYPE 2 Controlled A1c 6.6 Continue Lantus Novolog sliding scale HYPERLIPIDEMIA Continue statin DVT PROPHYLAXIS Heparin SQ FULL CODE DISPOSITION monitor in Telemetry return to [facility] snf when medically stable Vital Signs: Date Time Temp Pulse Resp B/P (MAP) Pulse Ox O2 Delivery O2 Flow Rate FiO2 10/28/16 07:33 36.7 74 19 149/85 (106) 97 Room Air 10/28/16 04:13 36.7 82 18 154/75 (101) 97 Room Air 10/28/16 04:00 Room Air 10/28/16 00:00 Room Air 10/27/16 23:58 37.0 88 20 159/85 (109) 98 Room Air 10/27/16 20:00 Room Air 10/27/16 19:13 37.0 98 20 175/79 (111) 99 Room Air 10/27/16 16:19 36.8 94 16 179/91 Room Air 10/27/16 16:10 36.6 89 18 145/78 98 10/27/16 16:00 89 18 145/78 98 10/27/16 14:31 81 18 169/109 99 Room Air 10/27/16 14:02 79 18 178/104 98 Room Air 10/27/16 12:18 36.6 83 18 184/103 98 Room Air Lab Results: Results Past 24 Hours Test 10/27/16 13:22 10/27/16 16:39 10/27/16 19:56 10/27/16 21:05 Range/Units White Blood Count 9.76 4.8-10.8 K/uL Red Blood Count 4.41 4.7-6.1 M/uL Hemoglobin 11.8 14.0-18.0 g/dL Hematocrit 34.9 42-52 % Mean Corpuscular Volume 79.1 80-100 fL Mean Corpuscular Hemoglobin 26.8 25-34 pg Mean Corpuscular Hemoglobin Concent 33.8 32-36 g/dl Platelet Count 188 130-400 K/uL Mean Platelet Volume 11.6 7.4-10.4 fL Neutrophils (%) (Auto) 47.8 % Lymphocytes (%) (Auto) 33.3 % Monocytes (%) (Auto) 15.2 % Eosinophils (%) (Auto) 3.1 % Basophils (%) (Auto) 0.4 % Neutrophils # (Auto) 4.67 1.4-6.5 K/uL Lymphocytes # (Auto) 3.25 1.2-3.4 K/uL Monocytes # (Auto) 1.48 0.11-0.59 K/uL Eosinophils # (Auto) 0.30 0-0.5 K/uL Basophils # (Auto) 0.04 0-0.2 K/uL RDW Standard Deviation 40.2 36.4-46.3 fL RDW Coefficient of Variation 14.0 11.5-14.5 % Immature Granulocyte % (Auto) 0.2 % Immature Granulocyte # (Auto) 0.02 0.00-0.02 K/uL Sodium Level 140 136-145 mmol/L Potassium Level 3.9 3.5-5.1 mmol/L Chloride Level 107 98-107 mmol/L Carbon Dioxide Level 23 21-32 mmol/L Anion Gap 10.0 3-11 mmol/L Blood Urea Nitrogen 63 7-18 mg/dl Creatinine 5.30 0.60-1.40 mg/dl Est Creatinine Clear Calc Drug Dose 20.6 ml/min Estimated GFR () 12.6 Estimated GFR (Non- 10.8 BUN/Creatinine Ratio 11.9 10-20 Random Glucose 133 70-99 mg/dl Calcium Level 8.4 8.5-10.1 mg/dl Magnesium Level 2.0 1.8-2.4 mg/dl Total Creatine Kinase 232 39-308 U/L Creatine Kinase MB 2.7 0.5-3.6 ng/ml Creatine Kinase MB Ratio 1.2 0-3.0 Troponin I 0.018 0-0.045 ng/ml Pro-B-Type Natriuretic Peptide 780 0-900 pg/ml Bedside Glucose 173 188 70-99 mg/dl Urine Color YELLOW Urine Appearance CLEAR CLEAR Urine pH 6.0 4.5-7.5 Urine Specific [place] 1.019 1.000-1.030 Urine Protein 3+ NEG Urine Glucose (UA) 1+ NEG Urine Ketones NEG NEG Urine Occult Blood TRACE NEG Urine Nitrite NEG NEG Urine Bilirubin NEG NEG Urine Urobilinogen NEG NEG Urine Leukocyte Esterase NEG NEG Urine WBC (Auto) 1-5 0-5 /hpf Urine RBC (Auto) 5-10 0-4 /hpf Urine Hyaline Casts (Auto) 1-5 0-5 /lpf Urine Epithelial Cells (Auto) >30 0-5 /lpf Urine Bacteria (Auto) NEG NEG Urine Renal Epithelial Cells 0-5 0-5 /lpf Urine Random Creatinine 110.0 mg/dl Urine Random Total Protein 641.9 0-11.9 mg/dl Urine Random Sodium 30 mEq/L Test 10/28/16 05:54 10/28/16 06:54 10/28/16 09:43 10/28/16 09:44 Range/Units Triglycerides Level 148 0-150 mg/dl Cholesterol Level 141 0-200 mg/dl HDL Cholesterol 38 mg/dl LDL Cholesterol, Calculated 73 mg/dl VLDL Cholesterol, Calculated 30 mg/dl Cholesterol/HDL Ratio 3.7 Bedside Glucose 116 70-99 mg/dl Test 10/28/16 09:45 Range/Units
[2016-10-28 10:45] LABS: HEMATOCRIT 33.6 % (42-52); MEAN CELL VOLUME 78.7 fL (80-100); MEAN PLATELET VOLUME 11.4 fL (7.4-10.4); PLATELET COUNT 193 K/uL (130-400); RED BLOOD COUNT 4.27 M/uL (4.7-6.1); WHITE BLOOD COUNT 8.36 K/uL (4.8-10.8)
[2016-10-28 11:12] VITALS: BP 157/81; PULSE 90; TEMP 36.6; O2SAT 98
[2016-10-28 11:41] LABS: ALB/GLOB RATIO 0.5 (0.9-2); CREATININE 5.1 mg/dl (0.60-1.40); POTASSIUM 3.6 mmol/L (3.5-5.1)
[2016-10-28 11:42] LABS: ESTIMATED AVERAGE GLUCOSE 143 mg/dl; HA1C FLAG Normal (Normal)
[2016-10-28] MEDS: FUROSEMIDE INJ 20 MG in SYRINGE 0 ML IV SCH ×2 (12:34→21:37)
[2016-10-28 15:41] VITALS: BP 166/75; PULSE 84; TEMP 36.8; O2SAT 98
[2016-10-28 17:54] VITALS: BP 157/78; PULSE 85
[2016-10-28 19:25] VITALS: BP 174/77; PULSE 74; TEMP 37; O2SAT 98
[2016-10-28] MEDS: INSULIN GLARGINE SOLOSTAR 100 UNITS/ML 3 ML PEN SC SCH (21:27)
[2016-10-28] MEDS: ATORVASTATIN 20 MG TAB PO SCH (21:37)
[2016-10-29] VITALS (8 sets, daily range): BP systolic 149–194; BP diastolic 65–84; PULSE 73–91; TEMP 36.5–37.1; O2SAT 97–99
[2016-10-29] MEDS: HEPARIN SOD 5000 UNIT/0.5 ML CARP SQ SCH ×3 (06:07→21:04)
[2016-10-29 07:54] LABS: HEMATOCRIT 34.3 % (42-52); MEAN CELL VOLUME 79.6 fL (80-100); MEAN CORPUSCULAR HEMOGLOBIN 25.8 pg (25-34); MEAN CORPUSCULAR HGB CONC 32.4 g/dl (32-36); MEAN PLATELET VOLUME 12.4 fL (7.4-10.4); PLATELET COUNT 197 K/uL (130-400); RED BLOOD COUNT 4.31 M/uL (4.7-6.1); WHITE BLOOD COUNT 8.02 K/uL (4.8-10.8)
[2016-10-29 08:37] LABS: BUN/CREATININE RATIO 11.7 (10-20); CALCIUM 8.1 mg/dl (8.5-10.1); CREATININE 5.1 mg/dl (0.60-1.40); POTASSIUM 3.5 mmol/L (3.5-5.1)
[2016-10-29] MEDS: RANITIDINE HCL 150 MG TAB PO SCH (10:10)
[2016-10-29] MEDS: AMLODIPINE BESYLATE 5 MG TAB PO SCH (10:10)
[2016-10-29] MEDS: FUROSEMIDE INJ 20 MG in SYRINGE 0 ML IV SCH ×2 (10:10→20:01)
[2016-10-29] MEDS: CARVEDILOL 25 MG TAB PO SCH ×2 (10:11→20:01)
[2016-10-29] MEDS: INSULIN ASPART 100 UNITS/ML 3 ML PEN SC SCH ×4 (10:19→20:05)
--- NOTE | 2016-10-29 13:57 | Nephrology Progress Note ---
Nephrology Progress Note Date of Service: Oct 29, 2016. Subjective feels fine. No new issues. Making urine after iv lasix. Objective Date Time Temp Pulse Resp B/P (MAP) Pulse Ox O2 Delivery O2 Flow Rate FiO2 10/29/16 12:25 36.5 78 20 152/73 (99) 98 Room Air 10/29/16 12:20 Room Air 10/29/16 08:00 Room Air 10/29/16 07:31 36.6 73 20 165/82 (109) 99 10/29/16 04:49 36.9 79 18 152/67 (95) 97 10/29/16 04:00 Room Air 10/29/16 00:09 37.0 84 18 149/72 (97) 99 Room Air 10/29/16 00:00 Room Air 10/28/16 20:00 Room Air 10/28/16 19:25 37.0 74 19 174/77 (109) 98 Room Air 10/28/16 17:54 85 157/78 (104) 10/28/16 16:00 Room Air 10/28/16 15:41 36.8 84 21 166/75 (105) 98 Room Air Physical Exam: General-[AAO] Neck-[Supple] Lungs-[Clear] Heart-[S1 and s2] Abdomen-[Soft tender] Extremities-[1+ edema] Current Inpatient Medications Medications (Trade) Dose Ordered Sig/Errol Route Start Time Stop Time Status Last Admin Dose Admin Heparin Sodium (Porcine) (Heparin Sq 5000 Unit/0.5ml) 5,000 unit Q8 SQ 10/27/16 22:00 11/26/16 21:59 10/29/16 13:36 5,000 UNIT Acetaminophen (Tylenol Tab) 650 mg Q4H PRN PO 10/27/16 15:15 11/26/16 15:14 10/27/16 16:50 650 MG Ondansetron HCl (Zofran Inj) 4 mg Q6H PRN IV 10/27/16 15:15 11/26/16 15:14 Insulin Aspart (novoLOG ASPART) SLIDING SCALE If C... ACHS SC 10/27/16 16:00 11/26/16 15:59 10/29/16 13:34 12 UNITS Glucose (Glucose 40% Gel) 15-30 GRAMS 15 GRAMS... UD PRN PO 7/28/17 15:30 11/26/16 15:29 Glucose (Glucose Chew Tab) 4-8 Tablets 4 Tabl... UD PRN PO 10/27/16 15:30 11/26/16 15:29 Dextrose (Dextrose 50% 50ML Syringe) 25-50ML OF 50% DW IV FOR... UD PRN IV 10/27/16 15:30 11/26/16 15:29 Glucagon (Glucagon Inj) 1 mg UD PRN SQ 10/27/16 15:30 11/26/16 15:29 Amlodipine Besylate (Norvasc Tab) 10 mg DAILY PO 10/28/16 09:00 11/27/16 08:59 10/29/16 10:10 10 MG Atorvastatin Calcium (Lipitor Tab) 20 mg QPM PO 10/27/16 21:00 11/26/16 20:59 10/28/16 21:37 20 MG Carvedilol (Coreg Tab) 25 mg BID PO 10/27/16 21:00 11/26/16 20:59 10/29/16 10:11 25 MG Insulin Glargine (Lantus Solostar Pen) 30 units QPM SC 10/27/16 21:00 11/26/16 20:59 10/28/16 21:27 30 UNITS Ranitidine HCl (zANTac TAB) 150 mg DAILY PO 10/28/16 09:00 11/27/16 08:59 10/29/16 10:10 150 MG Hydralazine HCl (HydrALAZINE INJ) 10 mg Q8H PRN IV. 10/27/16 16:30 11/26/16 16:29 Labetalol HCl (Normodyne IV) 10 mg Q1H PRN IV 10/27/16 20:15 11/26/16 20:14 Furosemide 20 mg/ Syringe 2 ml @ 4 mls/min BID IV 10/28/16 12:15 11/27/16 12:14 10/29/16 10:10 4 MLS/MIN Last 24 Hours Test 10/28/16 15:53 10/28/16 20:13 10/29/16 06:37 10/29/16 06:53 Bedside Glucose 109 mg/dl 88 mg/dl 103 mg/dl White Blood Count 8.02 K/uL Red Blood Count 4.31 M/uL Hemoglobin 11.1 g/dL Hematocrit 34.3 % Mean Corpuscular Volume 79.6 fL Mean Corpuscular Hemoglobin 25.8 pg Mean Corpuscular Hemoglobin Concent 32.4 g/dl RDW Standard Deviation 41.3 fL RDW Coefficient of Variation 14.1 % Platelet Count 197 K/uL Mean Platelet Volume 12.4 fL Sodium Level 142 mmol/L Potassium Level 3.5 mmol/L Chloride Level 110 mmol/L Carbon Dioxide Level 22 mmol/L Anion Gap 10.0 mmol/L Blood Urea Nitrogen 61 mg/dl Creatinine 5.10 mg/dl Est Creatinine Clear Calc Drug Dose 21.5 ml/min Estimated GFR () 13.2 Estimated GFR (Non- 11.4 BUN/Creatinine Ratio 11.7 Random Glucose 95 mg/dl Calcium Level 8.1 mg/dl Phosphorus Level 4.0 mg/dl Magnesium Level 2.0 mg/dl Test 10/29/16 11:53 Bedside Glucose 150 mg/dl Assessment & Plan A/P 61 y/o M a/w DONNA on rapidly progressive CKD 4 w/ nephrotic range proteinuria, chronic microhematuria and HTN urgency readmitted today after recent renal biopsy (results unknown) and aggressive diuresis 20 lb earlier this week. Other PMH includes DM on insulin, chronic HCV, OA. DONNA on CKD 4/5 w/ nephrotic syndrome and HTN urgency. In true sense it is more of CKD/nephrotic syndrome progression. HTn related with Salt retention from Nepphrotic syndrome. Continue iv lasix today. for discharge demadex 100 daily. very close to needing [facility] dialysis. needs Outpt Nephro follow up.
--- NOTE | 2016-10-29 14:15 | Progress Note ---
Internal Med Progress Note Date of Service: Oct 29, 2016. Provider Documentation: SUBJECTIVE: BP remains stable today no complain of SOB or chest discomfort no headache OBJECTIVE: Vital Signs-as noted below Exam: General-no sign of distress Eyes-sclera non icteric ENT-NAD Neck-no JVD Lungs-no rales or wheeze noted Heart-regular S1/S2, no JVD , + 1 -2 edema on rt ankle , no edema on left Abdomen-soft, non tender Extremities-multiple tattoo benedict on arms and torose , no rash or deformity noted Neuro-AAO x3, no focal neurological deficit Lab data as noted below. ASSESSMENT & PLAN: DONNA ON CKD 4 -5 /WITH NEPHROTIC SYNDROME S/p renal biopsy on 10/23/16 at [facility] [place]- Pathology : consistent with advanced diabetic nephropathy Glomerulosclerosis Arteriolar Hyalinosis /interstitial fibrosis , tubular atrophy interstitial inflammation with eosinophilia work up in [facility] : C3/C4 level -nl lipid panel -nl SHANNAN -negative Cryoglobulin level -still pending HIV screen -negative Renal USG : no evidence of hydronephrosis increased cortical echogenicity suggestive non obstructive renal insufficiency no change form prior EXAM Placed on renal diet with 1500 cc fluid restriction and 2g sodium restriction Daily standing weights, I&O's urine protein + 3 , random total protein > 600 , Cr remains elevated > 5 appreciate input form Nephrology Consulted nephrology appreciate input IV Lasix ordered can be discharged on PO Demadex 100 mg daily given progressively declining /advanced renal disease -pt may need to be on dialysis soon updated pt at bedside pt will need nephrology follow up as out patient POOR VASCULAR ACCESS pt is very difficult stick (hx of IV drug abuse in past ) ordered for PICC line -unable to place /tread catheter HYPERLIPIDEMIA : Continued with statin added aspirin 81 mg daily due to nephrotic syndrome HYPERTENSIVE URGENCY BP improved hx of long standing poorly controlled HTN -possible causing nephrosclerosis/DONNA on CKD Continue PRN hydralazine/added IV Prn Labetalol last night pt was discharged from [facility] on amlodipine 10 mg daily and Coreg 25 mg BID-continued ordered for Lasix today by Nephrology HX HEPATITIS C ordered for Hep C viral load and RNA qualitative study hx of IV drug abuse per pt -he was on Hep C treatment twice daily for 6 months ( during [id number] ) while in [place] [facility] Hepatitis panel Hep c Positive GI eval will be requested DM TYPE 2 Controlled A1c 6.6 Continue Lantus Novolog sliding scale HYPERLIPIDEMIA Continue statin DVT PROPHYLAXIS Heparin SQ FULL CODE DISPOSITION monitor in Telemetry return to [facility] in next 1-2 days will need Nephrology followup as out patient -progressive renal disease , may need dialysis in near future Vital Signs: Date Time Temp Pulse Resp B/P (MAP) Pulse Ox O2 Delivery O2 Flow Rate FiO2 10/29/16 12:25 36.5 78 20 152/73 (99) 98 Room Air 10/29/16 12:20 Room Air 10/29/16 08:00 Room Air 10/29/16 07:31 36.6 73 20 165/82 (109) 99 10/29/16 04:49 36.9 79 18 152/67 (95) 97 10/29/16 04:00 Room Air 10/29/16 00:09 37.0 84 18 149/72 (97) 99 Room Air 10/29/16 00:00 Room Air 10/28/16 20:00 Room Air 10/28/16 19:25 37.0 74 19 174/77 (109) 98 Room Air 10/28/16 17:54 85 157/78 (104) 10/28/16 16:00 Room Air 10/28/16 15:41 36.8 84 21 166/75 (105) 98 Room Air Lab Results: Results Past 24 Hours Test 10/28/16 15:53 10/28/16 20:13 10/29/16 06:37 10/29/16 06:53 Range/Units Bedside Glucose 109 88 103 70-99 mg/dl White Blood Count 8.02 4.8-10.8 K/uL Red Blood Count 4.31 4.7-6.1 M/uL Hemoglobin 11.1 14.0-18.0 g/dL Hematocrit 34.3 42-52 % Mean Corpuscular Volume 79.6 80-100 fL Mean Corpuscular Hemoglobin 25.8 25-34 pg Mean Corpuscular Hemoglobin Concent 32.4 32-36 g/dl RDW Standard Deviation 41.3 36.4-46.3 fL RDW Coefficient of Variation 14.1 11.5-14.5 % Platelet Count 197 130-400 K/uL Mean Platelet Volume 12.4 7.4-10.4 fL Sodium Level 142 136-145 mmol/L Potassium Level 3.5 3.5-5.1 mmol/L Chloride Level 110 98-107 mmol/L Carbon Dioxide Level 22 21-32 mmol/L Anion Gap 10.0 3-11 mmol/L Blood Urea Nitrogen 61 7-18 mg/dl Creatinine 5.10 0.60-1.40 mg/dl Est Creatinine Clear Calc Drug Dose 21.5 ml/min Estimated GFR () 13.2 Estimated GFR (Non- 11.4 BUN/Creatinine Ratio 11.7 10-20 Random Glucose 95 70-99 mg/dl Calcium Level 8.1 8.5-10.1 mg/dl Phosphorus Level 4.0 2.5-4.9 mg/dl Magnesium Level 2.0 1.8-2.4 mg/dl Test 10/29/16 11:53 Range/Units Bedside Glucose 150 70-99 mg/dl
--- NOTE | 2016-10-29 17:33 | Progress Note ---
Progress Note Date of Service Oct 29, 2016. Progress Note PT FOUND TO BE HYPOGLYCEMIC BSG IN 60'S POSSIBLE LONGER ACTION OF INSULIN DUE TO POOR CLEARANCE INSULIN SSI ADJUSTED REDUCED LANTUS TO 15 U HS ( WAS ON 30 U ) PHARMACY CONSULTED FOR GLYCEMIC MANAGEMENT
[2016-10-29] MEDS ORDERED: PHARMACY GLYCEMIC MGMT CONSULT SCH (17:42)
--- NOTE | 2016-10-29 18:00 | Pharmacy Progress Note ---
Glycemic Control Intl Consult Date of Service Oct 29, 2016. Scope Glycemic Pharmacist consulted by Dr David on 10/29/16 for glycemic control and to write orders per [facility] inpatient glycemic control protocol Objective Weight (Kilograms): 130.500 Accuchecks BSG (last 24hrs): Test 10/28/16 20:13 10/29/16 06:37 10/29/16 06:53 10/29/16 11:53 Bedside Glucose 88 mg/dl (70-99) 103 mg/dl (70-99) 150 mg/dl (70-99) Random Glucose 95 mg/dl (70-99) Test 10/29/16 16:18 10/29/16 17:00 Bedside Glucose 60 mg/dl (70-99) 74 mg/dl (70-99) Laboratory Data (last 24hrs) Test 10/29/16 06:53 Anion Gap 10.0 mmol/L BUN/Creatinine Ratio 11.7 Blood Urea Nitrogen 61 mg/dl Creatinine 5.10 mg/dl Potassium Level 3.5 mmol/L Sodium Level 142 mmol/L White Blood Count 8.02 K/uL HbA1c Test 10/28/16 10:15 Hemoglobin A1c 6.6 % (4.5-5.6) H Recent Pertinent Medications Outpatient Anti-diabetic Regimen: * Lantus 30 units HS * Humulin 70/30 10 units SQ QAM * Regular insulin sliding scale * A1c = 6.6 % 10/28/16 The patient is currently receiving: * Basal insulin: Lantus 30 units every 24 hours * Correctional Insulin: Novolog Correction per scale ACHS Goal Range: Low 120 mg/dL - High 160 mg/dL Correction Factor: 20 mg/dL/unit * Prandial insulin: Per carb ratio of 1 unit per 6 grams CHO consumed Risk Factors for Insulin Resistance: * Diet: Type 2 DM Assessment & Plan ASSESSMENT: * 61 year old type 2 diabetic, controlled as outpatient, experiencing episode of hypoglycemia today prior to dinner, BSG = 60mg/dL, pharmacy glycemic service consulted * I will reduce Lantus dose and loosen CF and CR to prevent further hypoglycemia. * ADA & AACE recommend a goal blood sugar range 140-180 mg/dl for the majority of critically ill & non-critically ill patients. However, more stringent targets may be selected in individual cases. Normally for patient's age and A1c , goal of 100-140mg/dl would be indicated, but will continue 120-160mg/dl to prevent hypoglycemia. PLAN FOR INPATIENT GLYCEMIC CONTROL: * Decreasing Lantus to 18 units SQ HS * Changing correction factor to 30 mg/dl/unit * Changing carb ratio to 1 unit per 10 grams CHO consumed * Continuing goal range of Low 120 mg/dL - High 160 mg/dL * Please note that the plan above was derived based on current level of insulin resistance and hospital stress. These recommendations are appropriate for inpatient admission only. Plan of care upon discharge will need to be reassessed to avoid potential outpatient hypo/hyperglycemia. Thank you.
[2016-10-29] MEDS: ATORVASTATIN 20 MG TAB PO SCH (20:00)
[2016-10-29] MEDS ORDERED: INSULIN GLARGINE SOLOSTAR 100 UNITS/ML 3 ML PEN SC SCH (21:00)
[2016-10-30 00:05] VITALS: BP 160/71; PULSE 95; TEMP 36.8; O2SAT 98
[2016-10-30 04:23] VITALS: BP 150/84; PULSE 94; TEMP 36.7; O2SAT 99
[2016-10-30] MEDS: HEPARIN SOD 5000 UNIT/0.5 ML CARP SQ SCH ×2 (06:16→12:31)
[2016-10-30 06:33] LABS: HEMATOCRIT 34.4 % (42-52); MEAN CELL VOLUME 79.1 fL (80-100); MEAN CORPUSCULAR HGB CONC 32.8 g/dl (32-36); PLATELET COUNT 222 K/uL (130-400); RED BLOOD COUNT 4.35 M/uL (4.7-6.1); WHITE BLOOD COUNT 9.98 K/uL (4.8-10.8)
[2016-10-30 07:14] LABS: BUN/CREATININE RATIO 11.8 (10-20); CALCIUM 8.2 mg/dl (8.5-10.1); CREATININE 5.1 mg/dl (0.60-1.40); MAGNESIUM 1.9 mg/dl (1.8-2.4); PHOSPHORUS 3.8 mg/dl (2.5-4.9); POTASSIUM 3.6 mmol/L (3.5-5.1)
[2016-10-30 07:33] VITALS: BP 154/85; PULSE 85; TEMP 36.8; O2SAT 99
[2016-10-30] MEDS: RANITIDINE HCL 150 MG TAB PO SCH (08:58)
[2016-10-30] MEDS: AMLODIPINE BESYLATE 5 MG TAB PO SCH (08:58)
[2016-10-30] MEDS: CARVEDILOL 25 MG TAB PO SCH (08:58)
[2016-10-30] MEDS: INSULIN ASPART 100 UNITS/ML 3 ML PEN SC SCH ×2 (09:21→12:30)
[2016-10-30] MEDS: FUROSEMIDE INJ 20 MG in SYRINGE 0 ML IV SCH (10:17)
[2016-10-30 11:13] VITALS: BP 163/77; PULSE 76; TEMP 36.7; O2SAT 99
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
[2016-10-30 12:45] VITALS: BP 156/69; PULSE 81
--- NOTE | 2016-10-30 13:37 | Progress Note ---
Subjective Date of Service: Oct 30, 2016. Subjective Pt evaluation today including: conversation w/ patient, physical exam, lab review, review of studies, review of inpatient medication list Saw/examined the patient in room 236 No problems/issues to note Feeling fine, no shortness of breath, no chest pain No fevers/chills Problem List Medical Problems: (1) Acute left flank pain Status: Acute (2) Acute on chronic renal failure Status: Acute (3) Acute renal failure Status: Acute (4) Acute renal insufficiency Status: Acute (5) Generalized weakness Status: Acute (6) Left flank pain Status: Acute (7) Renal insufficiency Status: Acute (8) Uncontrolled hypertension Status: Acute (9) Weight gain Status: Acute Review of Systems Constitutional: No fever, No chills Respiratory: No shortness of breath Cardiac: No chest pain Abdomen: No pain, No nausea, No vomiting, No diarrhea Male : No dysuria, No urinary frequency Heme: No abnormal bleeding/bruising Medications Current Inpatient Medications Medications (Trade) Dose Ordered Sig/Errol Route Start Time Stop Time Status Last Admin Dose Admin Heparin Sodium (Porcine) (Heparin Sq 5000 Unit/0.5ml) 5,000 unit Q8 SQ 10/27/16 22:00 11/26/16 21:59 10/30/16 12:31 5,000 UNIT Acetaminophen (Tylenol Tab) 650 mg Q4H PRN PO 10/27/16 15:15 11/26/16 15:14 10/27/16 16:50 650 MG Ondansetron HCl (Zofran Inj) 4 mg Q6H PRN IV 10/27/16 15:15 11/26/16 15:14 Insulin Aspart (novoLOG ASPART) SLIDING SCALE If C... ACHS SC 10/27/16 16:00 11/26/16 15:59 10/30/16 12:30 9 UNITS Glucose (Glucose 40% Gel) 15-30 GRAMS 15 GRAMS... UD PRN PO 10/27/16 15:30 11/26/16 15:29 Glucose (Glucose Chew Tab) 4-8 Tablets 4 Tabl... UD PRN PO 10/27/16 15:30 11/26/16 15:29 Dextrose (Dextrose 50% 50ML Syringe) 25-50ML OF 50% DW IV FOR... UD PRN IV 10/27/16 15:30 11/26/16 15:29 Glucagon (Glucagon Inj) 1 mg UD PRN SQ 10/27/16 15:30 11/26/16 15:29 Amlodipine Besylate (Norvasc Tab) 10 mg DAILY PO 10/28/16 09:00 11/27/16 08:59 10/30/16 08:58 10 MG Atorvastatin Calcium (Lipitor Tab) 20 mg QPM PO 10/27/16 21:00 11/26/16 20:59 10/29/16 20:00 20 MG Carvedilol (Coreg Tab) 25 mg BID PO 10/27/16 21:00 11/26/16 20:59 10/30/16 08:58 25 MG Ranitidine HCl (zANTac TAB) 150 mg DAILY PO 10/28/16 09:00 11/27/16 08:59 10/30/16 08:58 150 MG Hydralazine HCl (HydrALAZINE INJ) 10 mg Q8H PRN IV. 10/27/16 16:30 11/26/16 16:29 10/29/16 21:05 10 MG Labetalol HCl (Normodyne IV) 10 mg Q1H PRN IV 10/27/16 20:15 11/26/16 20:14 Furosemide 20 mg/ Syringe 2 ml @ 4 mls/min BID IV 10/28/16 12:15 11/27/16 12:14 10/30/16 10:17 4 MLS/MIN Insulin Glargine (Lantus Solostar Pen) 18 units QPM SC 10/29/16 21:00 11/26/16 20:59 10/29/16 21:04 18 UNITS Miscellaneous Information (Consult Glycemic Management Pharmacy) 1 ea UD N/A 10/29/16 17:42 11/28/16 17:41 Objective Vital Signs Date Time Temp Pulse Resp B/P (MAP) Pulse Ox O2 Delivery O2 Flow Rate FiO2 10/30/16 12:45 81 156/69 (98) 10/30/16 12:04 Room Air 10/30/16 11:13 36.7 76 20 163/77 (105) 99 10/30/16 08:00 Room Air 10/30/16 07:33 36.8 85 20 154/85 (108) 99 Room Air 10/30/16 04:23 36.7 94 18 150/84 (106) 99 Room Air 10/30/16 04:00 Room Air 10/30/16 00:05 36.8 95 18 160/71 (100) 98 Room Air 10/30/16 00:00 Room Air 10/29/16 22:02 86 169/65 (99) 10/29/16 21:00 188/84 (118) 10/29/16 20:00 Room Air 10/29/16 19:26 37.1 91 20 194/80 (118) 98 Room Air 10/29/16 16:12 Room Air 10/29/16 15:33 36.7 90 18 155/84 (107) 99 Room Air Physical Exam General Appearance: no apparent distress, + obese Respiratory/Chest: lungs clear, normal breath sounds, no respiratory distress, no accessory muscle use Cardiovascular: regular rate, rhythm, no edema, no murmur Abdomen: normal bowel sounds, non tender, soft Extremities: normal inspection, no pedal edema Laboratory Results Last 24 Hours Test 10/29/16 16:18 10/29/16 17:00 10/29/16 17:53 10/29/16 20:03 Bedside Glucose 60 mg/dl 74 mg/dl 136 mg/dl 140 mg/dl Test 10/30/16 06:10 10/30/16 06:21 10/30/16 11:11 White Blood Count 9.98 K/uL Red Blood Count 4.35 M/uL Hemoglobin 11.3 g/dL Hematocrit 34.4 % Mean Corpuscular Volume 79.1 fL Mean Corpuscular Hemoglobin 26.0 pg Mean Corpuscular Hemoglobin Concent 32.8 g/dl RDW Standard Deviation 40.3 fL RDW Coefficient of Variation 14.1 % Platelet Count 222 K/uL Mean Platelet Volume 11.0 fL Sodium Level 143 mmol/L Potassium Level 3.6 mmol/L Chloride Level 112 mmol/L Carbon Dioxide Level 22 mmol/L Anion Gap 9.0 mmol/L Blood Urea Nitrogen 60 mg/dl Creatinine 5.10 mg/dl Est Creatinine Clear Calc Drug Dose 21.2 ml/min Estimated GFR () 13.2 Estimated GFR (Non- 11.4 BUN/Creatinine Ratio 11.8 Random Glucose 101 mg/dl Calcium Level 8.2 mg/dl Phosphorus Level 3.8 mg/dl Magnesium Level 1.9 mg/dl Bedside Glucose 131 mg/dl 139 mg/dl Assessment and Plan This is a 61 year old male with a PMH of insulin dependent DM2, CKD stage 5, HTN presents with weight gain, elevated creatinine, and elevated blood pressure Hx. of Nephrotic Syndrome CKD stage 5 renal biopsy performed on 10/23/16 - advanced diabetic nephropathy appreciate nephrology input placed on renal diet, fluid restriction and sodium restriction IV Lasix for now, daily weights and I's and O's plan to d/c back to [facility] - on Demadex 100mg daily Hypertensive Urgency presented with BP > 180/100 this is likely due to kidney disease currently receiving IV hydralazine may benefit from PO hydralazine TID, amlodipine 10mg daily, Coreg 25mg BID Hepatitis C hx. of hep C; has had treatment of this in the past appreciate GI evaluation ordered Hep C RNA - if positive, will need hepatology specialist HLD cont. statin DM2 appreciate pharmacy glycemic control loosen the correction factor last Ha1c ~ 6.6%, well controlled with outpatient regimen DVT ppx subq heparin FULL CODE d/c back to [facility] when okay with nephrology
[2016-10-30] MEDS ORDERED: TORS100T13 PO (13:40)
[2016-10-30] MEDS ORDERED: APR10 PO (13:40)
[2016-10-30] MEDS ORDERED: INSDGI SC (13:40)
--- NOTE | 2016-10-30 13:43 | Discharge Instructions ---
Discharge Instructions Date of Service Oct 30, 2016. Admission Reason for Admission: Arf, Htn Discharge Discharge Diagnosis / Problem: Nephrotic Syndrome, CKD stage 4-5, hypertensive urgency Discharge Goals Goal(s): Decrease discomfort, Improve function, Diagnostic testing, Therapeutic intervention Activity Recommendations Activity Limitations: resume your previous activity . Instructions / Follow-Up Instructions / Follow-Up Please follow-up with primary care physician You will need to see a liver specialist, if the Hepatitis C test (RNA) comes back positive You may need dialysis in the near future Current Hospital Diet Patient's current hospital diet: Renal Diet, Diabetes Type 2 Diet, Low Sodium Diet (2gm Na) Discharge Diet Recommended Diet: Low Sodium Diet (2gm Na), Diabetes Type 2 Diet, Renal Diet Fluid Restriction: 1500 ml (6 cups) Pending Studies Studies pending at discharge: no Laboratory Results Hemoglobin A1c Test 10/28/16 10:15 Range/Units Estimated Average Glucose 143 mg/dl Hemoglobin A1c 6.6 H 4.5-5.6 % Lipid Panel Test 10/28/16 05:54 Range/Units Triglycerides Level 148 0-150 mg/dl Cholesterol Level 141 0-200 mg/dl HDL Cholesterol 38 mg/dl Cholesterol/HDL Ratio 3.7 LDL Cholesterol, Calculated 73 mg/dl Medical Emergencies . Who to Call and When: Medical Emergencies: If at any time you feel your situation is an emergency, please call 911 immediately. . Non-Emergent Contact Non-Emergency issues call your: Primary Care Provider . . "Provider Documentation" section prepared by Jb Pichardo. . VTE Core Measure Inpt VTE Proph given/why not?: Unfractionated heparin SQ
--- NOTE | 2016-10-30 13:45 | Nephrology Progress Note ---
Nephrology Progress Note Date of Service: Oct 30, 2016. Subjective feels fine. No new issues. Making urine after iv lasix. 2800 ml yesterday. BP still high but getting better Objective Date Time Temp Pulse Resp B/P (MAP) Pulse Ox O2 Delivery O2 Flow Rate FiO2 10/30/16 12:45 81 156/69 (98) 10/30/16 12:04 Room Air 10/30/16 11:13 36.7 76 20 163/77 (105) 99 10/30/16 08:00 Room Air 10/30/16 07:33 36.8 85 20 154/85 (108) 99 Room Air 10/30/16 04:23 36.7 94 18 150/84 (106) 99 Room Air 10/30/16 04:00 Room Air 10/30/16 00:05 36.8 95 18 160/71 (100) 98 Room Air 10/30/16 00:00 Room Air 10/29/16 22:02 86 169/65 (99) 10/29/16 21:00 188/84 (118) 10/29/16 20:00 Room Air 10/29/16 19:26 37.1 91 20 194/80 (118) 98 Room Air 10/29/16 16:12 Room Air 10/29/16 15:33 36.7 90 18 155/84 (107) 99 Room Air Physical Exam: General-[AAO] Neck-[Supple] Lungs-[Clear] Heart-[S1 and s2] Abdomen-[Soft tender] Extremities-[1+ edema] Current Inpatient Medications Medications (Trade) Dose Ordered Sig/Errol Route Start Time Stop Time Status Last Admin Dose Admin Heparin Sodium (Porcine) (Heparin Sq 5000 Unit/0.5ml) 5,000 unit Q8 SQ 10/27/16 22:00 11/26/16 21:59 10/30/16 12:31 5,000 UNIT Acetaminophen (Tylenol Tab) 650 mg Q4H PRN PO 10/27/16 15:15 11/26/16 15:14 10/27/16 16:50 650 MG Ondansetron HCl (Zofran Inj) 4 mg Q6H PRN IV 10/27/16 15:15 11/26/16 15:14 Insulin Aspart (novoLOG ASPART) SLIDING SCALE If C... ACHS SC 10/27/16 16:00 11/26/16 15:59 10/30/16 12:30 9 UNITS Glucose (Glucose 40% Gel) 15-30 GRAMS 15 GRAMS... UD PRN PO 10/27/16 15:30 11/26/16 15:29 Glucose (Glucose Chew Tab) 4-8 Tablets 4 Tabl... UD PRN PO 10/27/16 15:30 11/26/16 15:29 Dextrose (Dextrose 50% 50ML Syringe) 25-50ML OF 50% DW IV FOR... UD PRN IV 10/27/16 15:30 11/26/16 15:29 Glucagon (Glucagon Inj) 1 mg UD PRN SQ 10/27/16 15:30 11/26/16 15:29 Amlodipine Besylate (Norvasc Tab) 10 mg DAILY PO 10/28/16 09:00 11/27/16 08:59 10/30/16 08:58 10 MG Atorvastatin Calcium (Lipitor Tab) 20 mg QPM PO 10/27/16 21:00 11/26/16 20:59 10/29/16 20:00 20 MG Carvedilol (Coreg Tab) 25 mg BID PO 10/27/16 21:00 11/26/16 20:59 10/30/16 08:58 25 MG Ranitidine HCl (zANTac TAB) 150 mg DAILY PO 10/28/16 09:00 11/27/16 08:59 10/30/16 08:58 150 MG Hydralazine HCl (HydrALAZINE INJ) 10 mg Q8H PRN IV. 10/27/16 16:30 11/26/16 16:29 10/29/16 21:05 10 MG Labetalol HCl (Normodyne IV) 10 mg Q1H PRN IV 10/27/16 20:15 11/26/16 20:14 Furosemide 20 mg/ Syringe 2 ml @ 4 mls/min BID IV 10/28/16 12:15 11/27/16 12:14 10/30/16 10:17 4 MLS/MIN Insulin Glargine (Lantus Solostar Pen) 18 units QPM SC 10/29/16 21:00 11/26/16 20:59 10/29/16 21:04 18 UNITS Miscellaneous Information (Consult Glycemic Management Pharmacy) 1 ea UD N/A 10/29/16 17:42 11/28/16 17:41 Last 24 Hours Test 10/29/16 16:18 10/29/16 17:00 10/29/16 17:53 10/29/16 20:03 Bedside Glucose 60 mg/dl 74 mg/dl 136 mg/dl 140 mg/dl Test 10/30/16 06:10 10/30/16 06:21 10/30/16 11:11 White Blood Count 9.98 K/uL Red Blood Count 4.35 M/uL Hemoglobin 11.3 g/dL Hematocrit 34.4 % Mean Corpuscular Volume 79.1 fL Mean Corpuscular Hemoglobin 26.0 pg Mean Corpuscular Hemoglobin Concent 32.8 g/dl RDW Standard Deviation 40.3 fL RDW Coefficient of Variation 14.1 % Platelet Count 222 K/uL Mean Platelet Volume 11.0 fL Sodium Level 143 mmol/L Potassium Level 3.6 mmol/L Chloride Level 112 mmol/L Carbon Dioxide Level 22 mmol/L Anion Gap 9.0 mmol/L Blood Urea Nitrogen 60 mg/dl Creatinine 5.10 mg/dl Est Creatinine Clear Calc Drug Dose 21.2 ml/min Estimated GFR () 13.2 Estimated GFR (Non- 11.4 BUN/Creatinine Ratio 11.8 Random Glucose 101 mg/dl Calcium Level 8.2 mg/dl Phosphorus Level 3.8 mg/dl Magnesium Level 1.9 mg/dl Bedside Glucose 131 mg/dl 139 mg/dl Assessment & Plan A/P 61 y/o M a/w DONNA on rapidly progressive CKD 4 w/ nephrotic range proteinuria, chronic microhematuria and HTN urgency readmitted today after recent renal biopsy (results unknown) and aggressive diuresis 20 lb earlier this week. Other PMH includes DM on insulin, chronic HCV, OA. DONNA on CKD 4/5 w/ nephrotic syndrome and HTN urgency. In true sense it is more of CKD/nephrotic syndrome progression. 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 Start Demadex 40 daily. Continue this for outpt. Add hydralazine 25 po tid. Continue other BP meds same as before. 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
[2016-10-30] MEDS ORDERED: TORS20TA2 PO (13:48)
[2016-10-30] MEDS ORDERED: APR/25 PO (13:50)
--- NOTE | 2016-10-30 13:53 | Discharge Summary ---
Discharge Summary Date of Service Oct 30, 2016. Discharge Summary Admission Date: Oct 27, 2016 at 15:01 Discharge Date: Oct 30, 2016 Discharge Disposition: Home ([facility]) Principal Diagnosis: Nephrotic Syndrome CKD stage 4-5 Hypertensive Urgency Insulin Dependent DM2 Admission Information HPI (per Admitting provider): This is a 61 y/o male with PMH Of CKD stage III, HTN, DM 2- controlled (A1c 6.6) , hx Hep C, and other problems listed below who was sent to the ED from [facility] for elevated BP (150/98), weight gain (6 lb in 2 days), abnormal labs (creat 5.4). Pt was recently hospitalized at [facility] October 16- for DONNA ( Creat was mid-high 3's during hospitalization, low 3's on August 2016 ER visit, prior Creat reportedly 1.8 in 11/2015), nephrotic syndrome, hypertensive emergency, seen by nephrology Dr. Sheth. Workup included renal US- no hydronephrosis, mild echogenicity. Hep C ab was positive, mello and ANCA neg, C3 and C4 wnl, total complement >60, anti-ds DNA wnl. Nephrotic syndrome noted with random urine protein 807 and protein/creat ratio 6.7. Pt was ultimately transferred to [place] for renal bx (done Sun10/23/16). Patient has not received results of bx yet. He was discharged on Sunday. Pt is currently on Lasix 20 mg BID, amlodipine 10 mg daily, and carvedilol 25 mg BID. States he is compliant with all meds. He reports worsening swelling of hands and legs in past few days, however less severe than last hospitalization. He admits to chills. Has chronic R knee pain due to OA. No NSAID use. Has been eating/ drinking as usual (on fluid restriction). No fevers, QUARLES, URI symptoms, cough, SOB, chest pain, abdominal pain, increasing abdominal girth, N/V/D. Denies urinary changes- no dysuria, frequency, decreased urine output, hematuria. Physical Exam (per Admitting): General Appearance: WD/WN, no apparent distress, + pertinent finding (alert cooperative 61 y/o male, not in distress, correctional officers at bedside) Head: normocephalic, atraumatic Eyes: normal inspection, PERRL, sclerae normal ENT: hearing grossly normal, pharynx normal Neck: supple, trachea midline Respiratory/Chest: lungs clear, normal breath sounds, no respiratory distress, no accessory muscle use Cardiovascular: regular rate, rhythm, no murmur Abdomen/GI: normal bowel sounds, non tender, soft Back: no CVA tenderness Extremities/Musculoskelatal: no calf tenderness, + pertinent finding (trace edema of bilateral hands, 1+ pretibial edema bilatera LE up to the knees) Neurologic/Psych: alert, normal mood/affect, oriented x 3 Skin: normal color, warm/dry, + pertinent finding (renal bx site healing well) Hospital Course This is a 61 year old male with a PMH of insulin dependent DM2, CKD stage 5, HTN presents with weight gain, elevated creatinine, and elevated blood pressure Hx. of Nephrotic Syndrome CKD stage 5 renal biopsy performed on 10/23/16 - advanced diabetic nephropathy appreciate nephrology input placed on renal diet, fluid restriction and sodium restriction IV Lasix for now, daily weights and I's and O's plan to d/c back to [facility] - on Demadex 100mg daily Hypertensive Urgency presented with BP > 180/100 this is likely due to kidney disease currently receiving IV hydralazine may benefit from PO hydralazine TID, amlodipine 10mg daily, Coreg 25mg BID Hepatitis C hx. of hep C; has had treatment of this in the past appreciate GI evaluation ordered Hep C RNA - if positive, will need hepatology specialist HLD cont. statin DM2 appreciate pharmacy glycemic control loosen the correction factor last Ha1c ~ 6.6%, well controlled with outpatient regimen DVT ppx subq heparin FULL CODE d/c back to [facility] when okay with nephrology Total time spent on discharge = 40 minutes This includes examination of the patient, discharge planning, medication reconciliation, and communication with other providers. Discharge Instructions Please follow-up with primary care physician You will need to see a liver specialist, if the Hepatitis C test (RNA) comes back positive You may need dialysis in the near future - follow-up with nephrology as outpatient
[2016-10-30 14:03] VITALS: BP 156/69; PULSE 81; TEMP 36.7; O2SAT 99
[2016-10-31] MEDS ORDERED: TORSEMIDE 20 MG TAB PO SCH (09:00)
[2016-10-31 23:37] LABS: HEPATITIS C RNA TMA QUAL Detected
[2016-11-01 03:09] LABS: HEPATITIS C VIRAL RNA BY PCR 1360000 IU/ML (<15); HEPATITIS C VIRAL RNA(LOG) PCR 6.13 LOG IU/ML (<1.18)
== END 2016-10-30 15:37 | disposition home or self-care (01) | DRG 684 ==
LOC: C.EDB 12:14 → C.2T 15:01 → EDBEDREQ 15:24 → ENRESERV 15:35
PROVIDERS: ADMIT Internal Medicine; ATTEND Hospitalist
DX: N17.9 Acute kidney failure, unspecified (principal); I12.9 Hypertensive chronic kidney disease with stage 1 through stage 4 chronic kidney disease, or unspecified chronic kidney disease; I16.0 Hypertensive urgency; N18.4 Chronic kidney disease, stage 4 (severe); E11.21 Type 2 diabetes mellitus with diabetic nephropathy; E11.22 Type 2 diabetes mellitus with diabetic chronic kidney disease; E11.649 Type 2 diabetes mellitus with hypoglycemia without coma; E78.5 Hyperlipidemia, unspecified; Z79.899 Other long term (current) drug therapy; Z79.4 Long term (current) use of insulin; Z87.891 Personal history of nicotine dependence; Z86.19 Personal history of other infectious and parasitic diseases

== ENCOUNTER → 2016-10-27 | Outpatient (CLI) | payer OTHER ==
[~2016-10-27] MED LIST changes: +ACETAMINOPHEN 325 MG TAB PO PRN; +APR/25 PO; +APR10 PO; +ATOR-22 PO; +CARV25TA2 PO; -EMOLLOT TOP; -FRS/40 PO; +FURO-85 PO; +HEPARIN SOD 5000 UNIT/0.5 ML CARP SQ SCH; -METO2.5T PO; +ONDANSETRON INJ 2 MG/ML 2 ML VIAL IV PRN; -TOLN1CRE26 TOP; +TORS100T13 PO; +TORS20TA2 PO
[2016-10-27 10:28] LABS: ALB/GLOB RATIO 0.6 (0.9-2); ALKALINE PHOSPHATASE 129 U/L (45-117); ALT/SGPT 49 U/L (12-78); AST/SGOT 42 U/L (15-37); BLOOD UREA NITROGEN 62 mg/dl (7-18); BUN/CREATININE RATIO 11.3 (10-20); CALCIUM 8.1 mg/dl (8.5-10.1); CARBON DIOXIDE 23 mmol/L (21-32); CHLORIDE 108 mmol/L (98-107); GLUCOSE 170 mg/dl (70-99); POTASSIUM 4.1 mmol/L (3.5-5.1); SODIUM 141 mmol/L (136-145)
== END | disposition home or self-care (01) ==
LOC: C.LABSPEC 09:33
DX: R11.0 Nausea (principal)

== ENCOUNTER → 2016-11-02 | Outpatient (CLI) | payer OTHER ==
[~2016-11-02] MED LIST changes: +APR/25 PO; +CARV25TA2 PO; -LISI40TA PO; -METO50TA16 PO; +TORS20TA2 PO
[2016-11-02 09:45] LABS: BLOOD UREA NITROGEN 51 mg/dl (7-18); CALCIUM 8.5 mg/dl (8.5-10.1); CARBON DIOXIDE 25 mmol/L (21-32); CHLORIDE 111 mmol/L (98-107); GLUCOSE 102 mg/dl (70-99); POTASSIUM 4.7 mmol/L (3.5-5.1); SODIUM 143 mmol/L (136-145)
--- NOTE | 2016-11-03 11:28 | CODING QUERY NO DIAGNOSIS ---
TREATMENT RENDERED WITHOUT A DIAGNOSIS To promote full compliance with coding requirements relating to patient care, physician participation is requested in all cases of athletic equipment custodian uncertainty. Please assist us with providing a diagnosis/symptom for the test(s) below: A diagnosis/symptom was not documented on your Order. A valid diagnosis/symptom is required to bill all insurances. Please remember that we are unable to code a diagnosis of rule out, probable, possible, questionable, or suspected. Tests that require a diagnosis: DOS: 11/02/16 * PRP DIAGNOSIS: Provider Signature: Date: Thank you Brittany [facility] Information Management Once completed, please kindly fax back to [phone] For questions please call [phone]
== END ==
LOC: C.LABSPEC 09:10
PROVIDERS: ATTEND Family Medicine
DX: Z01.89 Encounter for other specified special examinations (principal)

== ENCOUNTER → 2016-11-09 | Outpatient (CLI) | payer OTHER ==
[2016-11-09 15:43] LABS: BLOOD UREA NITROGEN 44 mg/dl (7-18); CARBON DIOXIDE 26 mmol/L (21-32); CHLORIDE 112 mmol/L (98-107); GLUCOSE 124 mg/dl (70-99); POTASSIUM 4.9 mmol/L (3.5-5.1); SODIUM 144 mmol/L (136-145)
--- NOTE | 2016-11-17 13:10 | CODING QUERY MEDICAL NECESSITY ---
CQSUPPORTING DIAGNOSIS NEEDED A supporting diagnosis is required for the test/procedure performed on this patient in order for us to be reimbursed by the patient's insurance. Please provide a supporting diagnosis for the following test/procedure listed below next to the test name along with your signature. *If there is no additional diagnosis for this patient that would support the following test/procedure please document that below next to the test/procedure. Test(s)/Procedure(s) that require a supporting diagnosis: DOS 11/09/16 PARTIAL RENAL PROFILE ORDERED BY SHAKEEL ANDREW Provider Signature: Date: Thank you Leana [facility] Health Information Management Once completed, please kindly fax back to [phone] For questions please call [phone]
--- NOTE | 2016-12-01 14:01 | CODING QUERY MEDICAL NECESSITY ---
CQSUPPORTING DIAGNOSIS NEEDED A supporting diagnosis is required for the test/procedure performed on this patient in order for us to be reimbursed by the patient's insurance. Please provide a supporting diagnosis for the following test/procedure listed below next to the test name along with your signature. *If there is no additional diagnosis for this patient that would support the following test/procedure please document that below next to the test/procedure. Test(s)/Procedure(s) that require a supporting diagnosis: DOS 11/09/16 PARTIAL RENAL PROFILE NO DIAGNOSIS WAS ON ORDER THANKS Provider Signature: Date: Thank you Leana Queen Health Information Management Once completed, please kindly fax back to [phone] For questions please call [phone]
== END | disposition home or self-care (01) ==
LOC: C.LABSPEC 11:23
PROVIDERS: ATTEND Physician Assistant Medical
DX: N18.9 Chronic kidney disease, unspecified (principal)

== ENCOUNTER → 2016-11-17 | Outpatient (CLI) | payer OTHER ==
[2016-11-17 11:54] LABS: ALT/SGPT 36 U/L (12-78); BLOOD UREA NITROGEN 45 mg/dl (7-18); BUN/CREATININE RATIO 10.9 (10-20); CALCIUM 7.8 mg/dl (8.5-10.1); CARBON DIOXIDE 24 mmol/L (21-32); CHLORIDE 112 mmol/L (98-107); GLUCOSE 160 mg/dl (70-99); POTASSIUM 4.4 mmol/L (3.5-5.1); SODIUM 142 mmol/L (136-145)
[2016-11-17 11:56] LABS: ALB/GLOB RATIO 0.6 (0.9-2); ALKALINE PHOSPHATASE 144 U/L (45-117); AST/SGOT 32 U/L (15-37)
--- NOTE | 2016-11-27 20:42 | CODING QUERY NO DIAGNOSIS ---
TREATMENT RENDERED WITHOUT A DIAGNOSIS 56 To promote full compliance with coding requirements relating to patient care, physician participation is requested in all cases of propagator uncertainty. Please assist us with providing a diagnosis/symptom for the test(s) below: A diagnosis/symptom was not documented on your Order. A valid diagnosis/symptom is required to bill all insurances. Please remember that we are unable to code a diagnosis of rule out, probable, possible, questionable, or suspected. DOS 11/17/16 Tests that require a diagnosis: * COMP METABOLIC (CHEMP) DIAGNOSIS: Provider Signature: Date: Thank you Loren Boggs Health Information Management Once completed, please kindly fax back to [phone] For questions please call [phone]
== END ==
LOC: C.LABSPEC 11:21
PROVIDERS: ATTEND Physician Assistant Medical
DX: N18.9 Chronic kidney disease, unspecified (principal)

== ENCOUNTER → 2017-01-12 | Outpatient (CLI) | payer OTHER ==
[~2017-01-12] MED LIST changes: -APR/25 PO; +HYDR-4716 PO; -TORS20TA2 PO
[2017-01-12 20:52] LABS: BLOOD UREA NITROGEN 43 mg/dl (7-18); CALCIUM 7.8 mg/dl (8.5-10.1); CARBON DIOXIDE 25 mmol/L (21-32); CHLORIDE 112 mmol/L (98-107); GLUCOSE 131 mg/dl (70-99); POTASSIUM 4.7 mmol/L (3.5-5.1); SODIUM 142 mmol/L (136-145)
== END ==
LOC: C.LABSPEC 12:42
PROVIDERS: ATTEND Physician Assistant Medical
DX: N18.9 Chronic kidney disease, unspecified (principal)